=== PATIENT | male | born 1955 | race Caucasian/White ===

== ENCOUNTER → 2016-11-29 | Outpatient (CLI) | payer OTHER ==
[2016-11-29 14:11] LABS: Blood Urea Nitrogen 11 mg/dL (9-20); Non-African American GFR(MDRD) >60 (>60 ml/min/1.73 sqM)
--- NOTE | 2016-11-29 14:45 | CT ---
EXAMINATION TYPE: CT iac w con DATE OF EXAM: 11/29/2016 2:31 PM COMPARISON: NONE HISTORY: hearing loss. CT DLP: 150 mGycm Automated exposure control for dose reduction was used. CONTRAST: CT scan of the IACs is performed with IV Contrast, patient injected with 100 mL of Omnipaque 300. FINDINGS: Visualized intracranial structures are normal. There is no evidence of an enhancing CP angl e mass lesion or intracanalicular lesion. The orbits appear normal. There is no widening of the porus acoustical this on either side. There is minimal mucoperiosteal thickening involving the ethmoid sinuses. Visualized portions of the paranasal sinuses and mastoids are clear. There is underaeration of the mastoids on the right. Middle ear structures and inner ear structures are normal. There is no evidence of cholesteatoma. The scutum are normal bilaterally. IMPRESSION: 1. UNDERAERATION OF THE RIGHT MASTOID. 2. OTHERWISE NORMAL CT SCAN OF THE IACS.
== END | disposition home or self-care (01) ==
LOC: RADCTMAIN 13:39
PROVIDERS: ATTEND Otolaryngology
DX: H90.72 Mixed conductive and sensorineural hearing loss, unilateral, left ear, with unrestricted hearing on the contralateral side (principal)
CPT/HCPCS: 82565; 84520; 70481; 36415; Q9967

== ENCOUNTER → 2017-04-24 | Outpatient (CLI) | payer BC ==
[2017-04-24 07:13] LABS: Basophils % (A) 0 %; CHCM 31.4; Eosinophils # (A) 0.1 k/uL (0-0.7); Eosinophils % (A) 2 %; HCT 42.4 % (39.0-53.0); HDW 2.41; HGB 13.8 gm/dL (13.0-17.5); Hypochromasia Slight; Luc # (Auto) 0.29; Luc % (Auto) 4; Lymphocytes # (A) 3.1 k/uL (1.0-4.8); Lymphocytes % (A) 41 %; MCH 29.1 pg (25.0-35.0); MCHC 32.4 g/dL (31.0-37.0); MCV 89.8 fL (80.0-100.0); Mean Platelet Volume 6.4; Monocytes # (A) 0.4 k/uL (0-1.0); Monocytes % (A) 5 %; Neutrophils # (A) 3.5 k/uL (1.3-7.7); Neutrophils % (A) 47 %; RBC 4.73 m/uL (4.30-5.90); RDW 14.7 % (11.5-15.5); WBC 7.4 k/uL (3.8-10.6); WBC (Perox) 7.66
[2017-04-24 09:50] LABS: ALT 52 U/L (21-72); AST 41 U/L (17-59); Alkaline Phosphatase 100 U/L (38-126); Anion Gap 9 mmol/L; Blood Urea Nitrogen 15 mg/dL (9-20); Calcium 9.3 mg/dL (8.4-10.2); Carbon Dioxide 27 mmol/L (22-30); Chloride 106 mmol/L (98-107); Cholesterol 166 mg/dL (<200); Glucose 136 mg/dL (74-99); HDL Cholesterol 33 mg/dL (40-60); Non-African American GFR(MDRD) >60 (>60 ml/min/1.73 sqM); Potassium 4.3 mmol/L (3.5-5.1); Sodium 142 mmol/L (137-145); Total Bilirubin 0.6 mg/dL (0.2-1.3); Total Protein 7.2 g/dL (6.3-8.2)
== END | disposition home or self-care (01) ==
LOC: LABWHC1 06:35
PROVIDERS: ATTEND Family Medicine
DX: Z00.01 Encounter for general adult medical examination with abnormal findings (principal); E78.2 Mixed hyperlipidemia; K75.81 Nonalcoholic steatohepatitis (NASH); E11.65 Type 2 diabetes mellitus with hyperglycemia; Z12.5 Encounter for screening for malignant neoplasm of prostate
CPT/HCPCS: 80061; 80053; 85025; 36415; G0103

== ENCOUNTER → 2017-11-14 | Outpatient (CLI) | payer BC ==
[2017-11-14 10:46] LABS: ALT 32 U/L (21-72); AST 33 U/L (17-59); Albumin 3.9 g/dL (3.5-5.0); Alkaline Phosphatase 76 U/L (38-126); Anion Gap 9 mmol/L; Blood Urea Nitrogen 14 mg/dL (9-20); Calcium 9.4 mg/dL (8.4-10.2); Carbon Dioxide 28 mmol/L (22-30); Chloride 105 mmol/L (98-107); Cholesterol 161 mg/dL (<200); Glucose 135 mg/dL (74-99); HDL Cholesterol 39 mg/dL (40-60); LDL Cholesterol,Calculated 95 mg/dL (0-99); Potassium 5.1 mmol/L (3.5-5.1); Sodium 142 mmol/L (137-145); Total Bilirubin 0.6 mg/dL (0.2-1.3); Total Protein 6.6 g/dL (6.3-8.2); Triglycerides 134 mg/dL (<150)
== END | disposition home or self-care (01) ==
LOC: LABWHC1 09:06
PROVIDERS: ATTEND Family Medicine
DX: E11.65 Type 2 diabetes mellitus with hyperglycemia (principal)
CPT/HCPCS: 36415; 80053; 80061

== ENCOUNTER 2018-01-16 18:00 | Emergency (ER) | payer BC ==
--- NOTE | 2018-01-16 18:31 | ED ---
Neuro HPI - General Chief Complaint: Neuro Symptoms/Deficit Stated Complaint: Poss stroke/ [place] palsey Time Seen by Provider: 01/16/18 18:10 Source: patient, family Mode of arrival: wheelchair Limitations: no limitations - History of Present Illness Is the patient presenting with stroke symptoms?: No Initial Comments: Patient with history of hypertension, diabetes, HLD present with numbness lower R side of face along mandible. Patient states sometime between 10 AM and 12 PM today he started feeling numbness along the right mandible, progressed to right half of right lower lip. Patient states he had the same episode in October of this year, was diagnosed with Duran's palsy, resolved after 6 weeks of prednisone and acyclovir. Patient states that time he can puff out his cheeks, which she is unable to do so today. Patient states she never had problems moving his forehead were closing his eye. She denies any history of heart attacks or strokes. Patient denies any headache, neck pain, vision changes, extremity weakness or numbness, confusion, speech problems. Patient states he has never had CT of the brain performed. - Related Data Home Medications: Home Medications Medication Instructions Recorded Confirmed Atorvastatin Calcium [Lipitor] 40 mg PO HS 02/28/16 01/16/18 Colesevelam [Welchol] 1,875 mg PO AC-BID 02/28/16 01/16/18 Ezetimibe [Zetia] 10 mg PO HS 02/28/16 01/16/18 Multivitamins, Thera [Multivitamin] 1 tab PO DAILY 02/28/16 01/16/18 metFORMIN HCL 1,000 mg PO BID 02/28/16 01/16/18 Lisinopril [Prinivil] 5 mg PO HS 01/16/18 01/16/18 Pioglitazone HCl [Actos] 15 mg PO DAILY 01/16/18 01/16/18 Previous Rx's Medication Instructions Recorded Aspirin EC [Ecotrin Low Dose] 81 mg PO DAILY 10 Days #10 01/16/18 tablet. predniSONE 40 mg PO DAILY 5 Days #10 tab 01/16/18 valACYclovir HCL [Valacyclovir] 1,000 mg PO Q8HR #15 tab 01/16/18 Allergies/Adverse Reactions: Allergies Allergy/AdvReac Type Severity Reaction Status Date / Time No Known Allergies Allergy Verified 01/16/18 19:00 Review of Systems ROS Statement: Those systems with pertinent positive or pertinent negative responses have been documented in the HPI. ROS Other: All systems not noted in ROS Statement are negative. Constitutional: Denies: fever, chills Eyes: Denies: eye pain, vision change ENT: Denies: ear pain, throat pain, hearing loss, congestion Respiratory: Denies: cough, dyspnea, stridor Cardiovascular: Denies: chest pain, palpitations Endocrine: Denies: fatigue Gastrointestinal: Denies: abdominal pain Musculoskeletal: Denies: arthralgia, myalgia Skin: Denies: rash, change in color Neurological: Reports: numbness, paresthesias. Denies: headache, weakness, confusion, vertigo General Exam - General Exam Comments Initial Comments: Sitting up on side of bed. No acute distress. Conversing normally. Calm, pleasant. Well appearing. Limitations: no limitations General appearance: alert, in no apparent distress Head exam: Present: atraumatic, normocephalic Eye exam: Present: normal appearance, PERRL, EOMI, other (A pills equal and reactive bilaterally. Eye movements intact bilaterally.). Absent: scleral icterus, conjunctival injection, nystagmus, periorbital swelling, periorbital tenderness Pupils: Present: normal accommodation ENT exam: Present: normal oropharynx, mucous membranes moist Neck exam: Present: normal inspection, other (No edema or swelling appreciated.) . Absent: tenderness, meningismus Respiratory exam: Present: normal lung sounds bilaterally. Absent: respiratory distress, wheezes, rales Cardiovascular Exam: Present: regular rate, normal rhythm GI/Abdominal exam: Present: soft. Absent: distended, tenderness, guarding, rebound Extremities exam: Present: normal inspection Neurological exam: Present: alert, oriented X3, normal gait, other (Patient unable to puff out his right cheek, otherwise cranial nerves intact. Patient denies any change in sensation upon palpation of lower right face and other areas of face. Patient with intact movement of right eyelid and right forehead. Muscle strength 5 out of 5 in all x-rays. Sensation intact in all extremities. Finger to nose coordinated bilaterally. Pronator drift negative bilaterally. Speech clear. GCS 15. Alert and oriented 4.) Psychiatric exam: Present: normal affect, normal mood Skin exam: Present: warm, dry, intact, normal color. Absent: rash Stroke [facility] - Lab Data Result diagrams: 01/16/18 18:35 01/16/18 18:35 Lab Results 01/16/18 01/16/18 01/16/18 Range/Units 18:35 18:35 18:35 WBC 7.3 (3.8-10.6) k/uL RBC 4.38 (4.30-5.90) m/uL Hgb 13.1 (13.0-17.5) gm/dL Hct 39.9 (39.0-53.0) % MCV 90.9 (80.0-100.0) fL MCH 30.0 (25.0-35.0) pg MCHC 33.0 (31.0-37.0) g/dL RDW 14.4 (11.5-15.5) % Plt Count 164 (150-450) k/uL Neutrophils % 46 % Lymphocytes % 45 % Monocytes % 5 % Eosinophils % 2 % Basophils % 0 % Neutrophils # 3.3 (1.3-7.7) k/uL Lymphocytes # 3.3 (1.0-4.8) k/uL Monocytes # 0.4 (0-1.0) k/uL Eosinophils # 0.2 (0-0.7) k/uL Basophils # 0.0 (0-0.2) k/uL PT 10.1 (9.0-12.0) sec INR 1.0 (<1.2) APTT 24.8 (22.0-30.0) sec Sodium 135 L (137-145) mmol/L Potassium 4.3 (3.5-5.1) mmol/L Chloride 103 (98-107) mmol/L Carbon Dioxide 23 (22-30) mmol/L Anion Gap 9 mmol/L BUN 17 (9-20) mg/dL Creatinine 0.86 (0.66-1.25) mg/dL Est GFR (CKD-EPI)AfAm >90 (>60 ml/min/1.73 sqM) Est GFR (CKD-EPI)NonAf >90 (>60 ml/min/1.73 sqM) Glucose 139 H (74-99) mg/dL Calcium 9.2 (8.4-10.2) mg/dL - Medical Decision Making Patient onset of symptoms between 10 AM and 12 PM, greater than 6 hours ago. Patient is not TPA candidate. Patient also having minor symptoms, possible Duran 's palsy, therefore not TPA candidate. Patient unable to puff out his right cheek, likely secondary to cranial nerve VII palsy, however he has intact movement of right eyelid and right forehead. Patient complains of numbness lower right side of face, however has intact sensation on physical exam. Patient does say that some symptoms in the past that went away on their own after 6 weeks, after prednisone and acyclovir. Assess risk benefit of CAT scan, given symptom do appear to spare the forehead at this time. Patient and agree with CTA of the head/neck CTA of the head negative. Patient reevaluated, states numbness has been intermittent while in the ER, currently improved. Symptoms may secondary to [place]. Cranial nerve VII palsy. At this time patient has no other focal neuro deficits. Discussed with patient and admission observation for neuro monitoring, rule out possible TIA, possible MRI in the morning. Patient elects to be discharged home, declines observation period would like to trial treatment with Duran's palsy medications as this result symptoms in the past. Understands and delayed treatment of stroke. Results and significant morbidity and mortality. Patient with both agree to follow up with neurologist as outpatient. In meantime will start prednisone, valacyclovir, 81 mg aspirin for stroke prevention prophylaxis. Patient agrees to return to ER immediately if worsening of symptoms or any new symptoms including headache, confusion, speech problems, numbness or weakness in any other areas of the body. Pt given referral to neurologist Dr. Lazo. 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 History of Any Multi-Drug Resistant Organisms: None Reported Past Surgical History: Tonsillectomy Past Anesthesia/Blood Transfusion Reactions: No Reported Reaction Past Psychological History: No Psychological Hx Reported Smoking Status: Former smoker Past Alcohol Use History: None Reported Past Drug Use History: None Reported - Past Family History Mother Family Medical History: No Reported History Course Vital Signs 01/16/18 01/16/18 18:05 20:24 Temperature 97.8 F 97.9 F Pulse Rate 86 83 Respiratory 15 18 Rate Blood Pressure 121/80 116/73 O2 Sat by Pulse 98 96 Oximetry Disposition 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 Follow primary care physician one to 2 days as well. Return to ER immediately if new or worsening symptoms including vision changes, speech problems, confusion, new numbness or weakness. Prescriptions: Aspirin EC [Ecotrin Low Dose] 81 mg PO DAILY 10 Days #10 tablet. predniSONE 40 mg PO DAILY 5 Days #10 tab valACYclovir HCL [Valacyclovir] 1,000 mg PO Q8HR #15 tab Is patient prescribed a controlled substance at d/c from ED?: No Referrals: Lisy Rojo III, MD [Primary Care Provider] - 1-2 days Monika Lazo MD [STAFF PHYSICIAN] - 1-2 days
[2018-01-16 18:47] LABS: Basophils % (A) 0 %; Eosinophils # (A) 0.2 k/uL (0-0.7); Eosinophils % (A) 2 %; HCT 39.9 % (39.0-53.0); HGB 13.1 gm/dL (13.0-17.5); Lymphocytes # (A) 3.3 k/uL (1.0-4.8); Lymphocytes % (A) 45 %; MCV 90.9 fL (80.0-100.0); Mean Platelet Volume 6.2; Monocytes # (A) 0.4 k/uL (0-1.0); Monocytes % (A) 5 %; Neutrophils # (A) 3.3 k/uL (1.3-7.7); Neutrophils % (A) 46 %; Platelet Count 164 k/uL (150-450); RBC 4.38 m/uL (4.30-5.90); RDW 14.4 % (11.5-15.5); WBC 7.3 k/uL (3.8-10.6)
[2018-01-16 18:55] LABS: Anion Gap 9 mmol/L; Blood Urea Nitrogen 17 mg/dL (9-20); Calcium 9.2 mg/dL (8.4-10.2); Carbon Dioxide 23 mmol/L (22-30); Chloride 103 mmol/L (98-107); Glucose 139 mg/dL (74-99); Potassium 4.3 mmol/L (3.5-5.1); Sodium 135 mmol/L (137-145)
[2018-01-16 18:56] LABS: Partial Thromboplastin Time 24.8 sec (22.0-30.0); Prothrombin Time 10.1 sec (9.0-12.0)
--- NOTE | 2018-01-16 20:20 | CT ---
EXAMINATION TYPE: CT angio head neck DATE OF EXAM: 01/16/2018 HISTORY: Right sided facial numbness. COMPARISON: NONE CT DLP: 364.4 mGycm. Automated Exposure Control for Dose Reduction was Utilized. TECHNIQUE: CTA scan of the head and neck are performed with IV Contrast, patient injected with 65 mL of Isovue 370, axial images are obtained, coronal and sagittal reformatted images are reviewed. Thre e-D reconstructed images are created on an independent workstation and reviewed. FINDINGS: Carotid/Vascular Structures: There is normal three-vessel origin from aortic arch with mild to minima l peripheral calcified plaque. Subclavian artery show no significant stenosis bilaterally. The right common carotid artery shows normal origin from right brachiocephalic artery. There is no significant plaque or stenosis in the right common or internal carotid artery arteries including at level of hunt tid bulb. Mild calcified plaque is seen in the proximal to mid right internal carotid artery. There i s patent right external carotid artery without significant plaque or stenosis . There is no significant plaque or stenosis in the left common or internal carotid arteries including at level of carotid bulb. There is patent external carotid artery without significant plaque or steno sis. There is dominant left vertebral artery. Vertebral arteries are patent to basilar junction. There is no significant stenosis or aneurysmal change in the posterior circulation. Patent posterior communica ting arteries are not identified. Images of the anterior circulation show no significant focal stenosis or aneurysmal change. Patent an terior communicating artery is present. Other: No significant incidental finding identified. IMPRESSION: 1. No significant focal stenosis in common or internal carotid arteries bilaterally. 2. No aneurysmal change at the level of [place] of [place].
[2018-01-16 20:24] VITALS: RESP 18
[2018-01-16] MEDS ORDERED: ASPIRIN 81 MG PO STA (21:32)
[2018-01-16 21:49] VITALS: BP 126/73; PULSE 77; TEMP 97.2
== END 2018-01-16 21:49 | disposition home or self-care (01) ==
LOC: EC 18:00
DX: G51.0 Bell's palsy (principal); E11.9 Type 2 diabetes mellitus without complications; E78.5 Hyperlipidemia, unspecified; I10 Essential (primary) hypertension; Z87.891 Personal history of nicotine dependence; Z79.84 Long term (current) use of oral hypoglycemic drugs; Z79.899 Other long term (current) drug therapy; Z53.29 Procedure and treatment not carried out because of patient's decision for other reasons
CPT/HCPCS: 36415; 80048; 85025; 85610; 85730; 70496; 70498; 99284; Q9967

== ENCOUNTER → 2018-02-23 | Outpatient (CLI) | payer BC ==
--- NOTE | 2018-02-23 18:28 | FL ---
EXAMINATION: Upper GI with small bowel follow through DATE: 02/23/2018 CLINICAL INDICATION: 62-year-old male with epigastric pain, history of gastroesophageal reflux, diffi culty swallowing pills, concern for hiatal hernia per patient. COMPARISON: None Total Fluoroscopy Time: 2 minutes 31 seconds. Total images: 68 FINDINGS: Initial butt welder image shows moderate stool burden. Nonobstructive bowel gas pattern. No suspicious calc ifications. The esophagus has a normal course, caliber, motility and mucosa. There is a small sliding hiatal hernia and [id number] gastroesophageal reflux noted when the pa tient is brought supine. The stomach and duodenum are free of any persistent filling defect and demonstrate a normal mucosal p attern with area gastricae demonstrated. Following administration of barium, serial films were carried out to 2 hours. Barium is seen to reach the colon at 1 hour 30 minutes. Loops of jejunum and ileum are compressed and examined under fluoros copy. The small bowel loops have a normal-caliber. Mucosal pattern is within normal limits. No intrin sic or extrinsic process is suspected. IMPRESSION: 1. Small sliding hiatal hernia with mild to moderate gastroesophageal reflux when the patient is brou ght supine. Esophageal mucosa is normal. 2. No mucosal abnormality or suspicious filling defect within the stomach. 3. Normal small bowel follow-through and normal small bowel transit time (1 hour 30 minutes).
== END | disposition home or self-care (01) ==
LOC: RADFLMAIN 07:51
PROVIDERS: ATTEND Family Medicine
DX: K44.9 Diaphragmatic hernia without obstruction or gangrene (principal); K21.9 Gastro-esophageal reflux disease without esophagitis; Z88.8 Allergy status to other drugs, medicaments and biological substances
CPT/HCPCS: 74245

== ENCOUNTER → 2018-06-26 | Outpatient (CLI) | payer BC ==
[2018-06-26 09:45] LABS: Basophils % (A) 0 %; Eosinophils # (A) 0.1 k/uL (0-0.7); Eosinophils % (A) 1 %; HCT 38.7 % (39.0-53.0); HGB 12.2 gm/dL (13.0-17.5); Lymphocytes % (A) 28 %; MCH 29.5 pg (25.0-35.0); MCHC 31.6 g/dL (31.0-37.0); MCV 93.3 fL (80.0-100.0); Mean Platelet Volume 6.5; Monocytes # (A) 0.5 k/uL (0-1.0); Monocytes % (A) 7 %; Neutrophils # (A) 4.5 k/uL (1.3-7.7); Neutrophils % (A) 63 %; Platelet Count 159 k/uL (150-450); RBC 4.14 m/uL (4.30-5.90); WBC 7.1 k/uL (3.8-10.6)
[2018-06-26 17:14] LABS: Albumin 4.4 g/dL (3.80-4.90); Albumin/Globulin Ratio 2.44 (1.20-2.10); Anion Gap 7.2 mmol/L (4.00-12.00); Carbon Dioxide 25.8 mmol/L (21.6-31.8); Globulin 1.8 g/dL (2.1-3.7); LDL Cholesterol,Calculated 85.4 mg/dL (0.0-131.0); Potassium 4.4 mmol/L (3.5-5.5); Total Protein 6.2 g/dL (6.2-8.2); VLDL Calculation 19.6 mg/dL (5.00-40.00)
== END | disposition home or self-care (01) ==
LOC: LABWHC1 08:24
PROVIDERS: ATTEND Family Medicine
DX: E11.65 Type 2 diabetes mellitus with hyperglycemia (principal)
CPT/HCPCS: 80061; 80053; 85025; 83036; 36415; G0103

== ENCOUNTER → 2018-07-08 | Outpatient (CLI) | payer BC ==
--- NOTE | 2018-07-08 19:32 | CT ---
EXAMINATION TYPE: CT abdomen pelvis wo/w con DATE OF EXAM: 07/08/2018 COMPARISON: None HISTORY: Abdominal pain CT DLP: mGycm Automated exposure control for dose reduction was used. TECHNIQUE: Helical acquisition of images was performed from the lung bases through the pelvis. CONTRAST: The contrast was Isovue 100 mL. FINDINGS: Lung bases are clear. There is no pleural effusion. Heart size is normal. There is no pericardial eff usion. Liver spleen pancreas appear normal. Bile ducts are not dilated. There is a small calcified gallstone . Gallbladder has normal size. There is no adrenal mass. There are cortical cyst on the right kidney that measure up to 2.5 cm. Ther e is no hydronephrosis. Ureters are not dilated. There is no retroperitoneal adenopathy. Bladder dist ends smoothly. There is no inguinal hernia. There is no free fluid in the pelvis. I see no intestinal wall thickening. There are no dilated loops . Appendix appears normal. There is no mesenteric edema. There are a few mesenteric lymph nodes that measure up to 1.5 cm. There are some spondylotic changes in the lumbar spine. There is no compression fracture. I see no bony destructive process. IMPRESSION: THERE ARE A FEW MESENTERIC LYMPH NODES OF UNCERTAIN SIGNIFICANCE. NO INTESTINAL WALL THICKENING OR EV IDENCE OF A BOWEL OBSTRUCTION. BILATERAL RENAL CORTICAL CYSTS. NO SIGN OF ACUTE ABDOMEN AND PELVIS.
== END ==
LOC: RADCTMAIN 16:40
PROVIDERS: ATTEND Family Medicine
DX: N28.1 Cyst of kidney, acquired (principal)
CPT/HCPCS: 74178; Q9967

== ENCOUNTER → 2018-07-27 | Outpatient (CLI) | payer BC ==
[2018-07-28 05:53] LABS: T4, Free (Free Thyroxine) 1.1 ng/dL (0.80-1.80)
[2018-07-28 09:35] LABS: Lyme IgG/IgM 0.1 Index
== END | disposition home or self-care (01) ==
LOC: LABWHC1 17:15
PROVIDERS: ATTEND Otolaryngology
DX: H91.8X9 Other specified hearing loss, unspecified ear (principal); R53.83 Other fatigue
CPT/HCPCS: 36415; 82607; 84439; 84443; 86618; 86780

== ENCOUNTER → 2018-07-30 | Outpatient (CLI) | payer BC ==
--- NOTE | 2018-07-30 23:57 | MR ---
EXAMINATION TYPE: MR brain and iac wo/w con DATE OF EXAM: 07/30/2018 COMPARISON: None HISTORY: Hearing loss. Hand tremors. TECHNIQUE: Multiplanar, multisequence images of the brain and brainstem is performed without and with IV contras t, utilizing 9 mL mL intravenous . FINDINGS: There is mild diffuse cerebral cortical atrophy. There is no mass effect nor midline shift. There is no sign of intracranial hemorrhage. There is no evidence of cortical infarct. There is slig ht thinning of the corpus callosum. The brainstem appears intact. There are scattered white matter hi gh signal foci in both cerebral hemispheres that measure up to 1 cm. Total number is approximately 25 . Internal auditory canals appear normal. There is no evidence of a posterior fossa mass. Cerebellum alvarado s fairly normal signal pattern. There is no evidence of cerebellopontine angle mass. Acoustic nerve a nd vestibular nerve appear normal. There is normal signal pattern in the temporal bones. Contrast paola ges show no pathologic enhancement. There is normal contrast opacification of the venous sinuses. IMPRESSION: Mild cerebral atrophy. Multiple white matter high signal foci probably relates to chronic small vessel ischemia at the pemberton-white matter junction of both cerebral hemispheres. No posterior f lazara focal abnormality.
== END | disposition home or self-care (01) ==
LOC: RADMRIMAIN 18:46
PROVIDERS: ATTEND Otolaryngology
DX: G31.9 Degenerative disease of nervous system, unspecified (principal); R90.82 White matter disease, unspecified; H93.19 Tinnitus, unspecified ear; H91.92 Unspecified hearing loss, left ear; H93.3X2 Disorders of left acoustic nerve
CPT/HCPCS: 70553; A9585

== ENCOUNTER → 2018-12-16 | Outpatient (CLI) | payer BC ==
[2018-12-16 17:13] LABS: Blood Urea Nitrogen 13 mg/dL (9-20)
--- NOTE | 2018-12-17 11:04 | CT ---
EXAMINATION TYPE: CT abdomen pelvis w con DATE OF EXAM: 12/16/2018 COMPARISON: 07/08/2018 INDICATION: abdominal pain DLP: 1241.6 mGycm, Automated exposure control for dose reduction was used. CONTRAST: 100 mL of Isovue 300. Study performed with Oral Contrast TECHNIQUE: Axial images were obtained from above the diaphragm to the pubic rami in the axial plane a t 5 mm thick sections. Reconstructed images are reviewed on the computer in the coronal plane. FINDINGS: Limited CT sections are obtained the lung bases. The lung bases are clear. CT ABDOMEN: Liver: Normal Spleen: Normal Pancreas: There is some hypodensity within the anterior body of the pancreas could be related to some volume averaging. Underlying mass is not excluded. On delayed images this area may be subtly persist ent consider MRI with contrast for additional evaluation. Adrenal glands: The adrenal glands are normal. Gallbladder: Gallstone is present. Kidneys: No masses are evident. No hydronephrosis is present. There is a 1.8 cm cyst on the superio r medial left kidney measuring 13 Hounsfield units. Additional cysts in the anterior posterior right mid kidney measuring 2.1 and 2.0 cm in size and approximately 10 Hounsfield units each. Delayed imag es were obtained through the kidneys, which remain unremarkable. Aorta: Vascular calcification is within the aorta. Inferior vena cava: Normal. CT PELVIS: Loops of bowel within the abdomen and pelvis are normal. There are loops of bowel which are incom pletely distended or lack oral contrast limiting their evaluation. Appendix: Normal as visualized. Urinary bladder: Normal. Genitourinary structures: Prostate is prominent may has some inferior urinary bladder impression. Osseous structures: No suspicious lytic or sclerotic lesions. IMPRESSIONS: 1. Ill-defined hypoechoic area within the body of the pancreas. Differential could include underlyin g mass or volume averaging with adjacent mesenteric fat. Recommend MRI with contrast for additional e valuation. Neoplasm is not excluded at this time. 2. Bilateral renal cysts. 3. Cholelithiasis
== END | disposition home or self-care (01) ==
LOC: RADCTMAIN 15:32
PROVIDERS: ATTEND Surgery
DX: K80.20 Calculus of gallbladder without cholecystitis without obstruction (principal); N28.1 Cyst of kidney, acquired; R93.2 Abnormal findings on diagnostic imaging of liver and biliary tract; R10.32 Left lower quadrant pain
CPT/HCPCS: 82565; 84520; 74177; 36415; Q9967

== ENCOUNTER → 2018-12-26 | Outpatient (CLI) | payer BC ==
--- NOTE | 2018-12-26 10:16 | MR ---
EXAMINATION TYPE: MR abdomen wo/w con DATE OF EXAM: 12/26/2018 COMPARISON: CT scan of the abdomen and pelvis dated 12/16/2018. HISTORY: Abdomen pain, abnormal CT CONTRAST: Standard multiplanar, multisequence MRI departmental protocol utilizing 9 mL intravenous Gadavist manolo olinium contrast. FINDINGS: Liver is normal in size. There is some signal dropout on out of phase imaging suggesting mi ld fatty infiltration of the liver. There is a small filling defect within the gallbladder which may represent a small calculus. The spleen is unremarkable. Following the intravenous administration of gadolinium, there is no abnormal enhancement. There are s imple appearing cysts in both kidneys. Both adrenal glands appear normal. There is a bilobed cystic lesion present within the body of the pancreas measuring approximately 2.9 x 1.3 cm. This is likely was accounting for the CT abnormality. There is no dilatation of the pancrea tic duct. IMPRESSION: 1. LOBULATED LESION WITHIN THE BODY OF THE PANCREAS HAS A CYSTIC APPEARANCE AND ABSENCE OF ENHANCEMEN T SUGGESTING A BENIGN ETIOLOGY. 2. MILD FATTY INFILTRATION OF THE LIVER. 3. SIMPLE APPEARING CYSTIC CHANGE WITHIN THE KIDNEYS. 4. CHOLELITHIASIS.
== END | disposition home or self-care (01) ==
LOC: RADMRIMAIN 08:47
PROVIDERS: ATTEND Surgery
DX: K86.2 Cyst of pancreas (principal); K80.20 Calculus of gallbladder without cholecystitis without obstruction; K76.0 Fatty (change of) liver, not elsewhere classified; N28.1 Cyst of kidney, acquired
CPT/HCPCS: 74183; A9585

== ENCOUNTER 2019-02-23 11:06 | Day surgery (SDC) | payer BC ==
[2019-02-16 11:38] VITALS: BMI 29.0
[~2019-02-23 11:06] MED LIST: DEXAMETHASONE SOD PHOSPHATE 10 MG/ML 1 ML VIAL IV ONE; HYDROmorphone 0.5 MG/0.5 ML SYRINGE IVP PRN; MIDAZOLAM 2 MG/2 ML VIAL IV PRN; ONDANSETRON 4 MG/2 ML VIAL IVP ONE; SCOPOLAMINE 1.5MG/72HR PATCH TRANSDERM ONE; ceFAZolin IN SWFI 2 GM/20 ML SYRINGE IVP ONE
[2019-02-23 11:52] LABS: Glucose,Whole Blood 108 mg/dL (75-99)
[2019-02-23] MEDS: LACTATED RINGERS 1,000 ML IV SCH ×2 (11:52→14:10)
[2019-02-23] MEDS ORDERED: LIDOCAINE 1% 20 ML VIAL (10MG/ML) FOR IV START INTRADERMA ONE (11:53)
[2019-02-23] MEDS ORDERED: fentaNYL (PF) 50 MCG/ML 2 ML AMP IVP ONE (12:20)
[2019-02-23] MEDS ORDERED: NEOSTIGMINE 1 MG/ML 10 ML VIAL ONE (15:04)
[2019-02-23] MEDS ORDERED: fentaNYL (PF) 50 MCG/ML 2 ML AMP ONE (15:04)
[2019-02-23] MEDS ORDERED: ROCURONIUM BROMIDE 10 MG/ML 10 ML VIAL IV ONE (15:04)
[2019-02-23] MEDS ORDERED: GLYCOPYRROLATE 0.2 MG/ML 2 ML VIAL ONE (15:04)
[2019-02-23] MEDS ORDERED: MIDAZOLAM 2 MG/2 ML VIAL ONE (15:04)
[2019-02-23] MEDS ORDERED: PROPOFOL 10 MG/ML 20 ML VIAL IV ONE (15:04)
[2019-02-23] MEDS ORDERED: LIDOCAINE 1% INJ 10MG/ML (20 ML MDV) ONE (15:04)
[2019-02-23] MEDS ORDERED: SUCCINYLCHOLINE CHLORIDE 100 MG/5 ML SYR IV ONE (15:04)
[2019-02-23] MEDS ORDERED: PHENYLEPHRINE-0.9% NACL SYG 1 MG/10 ML SYRINGE ONE (15:04)
[2019-02-23] MEDS ORDERED: BUPIVACAIN-EPI 0.25%-1:200,000 30 ML VIAL SQ ONE (15:25)
--- NOTE | 2019-02-23 16:00 | P.OP ---
Date of Procedure: 02/23/19 Preoperative Diagnosis: Left inguinal hernia Postoperative Diagnosis: Left direct and indirect inguinal hernia Procedure(s) Performed: Left inguinal herniorrhaphy with mesh Anesthesia: JOSE Surgeon: Trinidad Lopes Estimated Blood Loss (ml): 5 Pathology: none sent Condition: stable Disposition: PACU Indications for Procedure: Patient presented with a symptomatic left inguinal hernia Description of Procedure: The patient's taken the operative suite where he is prepped and draped in the usual sterile manner under a general endotracheal anesthetic. The ASIS and pubic tubercle were identified. Alf between those 2 points a 3 cm incision was made. The subcutaneous tissues were divided. The external oblique is opened along the direction of its fibers. The internal oblique as bluntly opened along the direction of its fibers. The transversalis fascia is opened vertically. The preperitoneal space is bluntly developed. The cord and cord structures were dissected free. There was a indirect hernia sac which is dissected free and suture-ligated. There was also evidence of a direct inguinal hernia. Once adequate space was developed, a 8 x 12 cm mesh was placed in the area and deployed. He gave good coverage of potential hernia defect areas. It was tacked to the fascia medially using a spiral tacker. The transversalis fascia was then closed with 0 Vicryl taking bites of the mesh to secure it in place. The internal oblique was allowed to fall back together. The external oblique is closed with 0 Vicryl. The skin incision was closed with 4-0 Vicryl in a subcuticular manner. Steri-Strips and dressings were applied. He tolerated the procedure without difficulty and was taken to recovery room in satisfactory condition. According to or personnel, all counts were correct. Plan - Discharge Summary Discharge Rx Participant: No New Discharge Prescriptions: New HYDROcodone/APAP 5-325MG [Morris 5-325] 1 - 2 tab PO Q4H PRN #30 tab PRN Reason: Pain No Action metFORMIN HCL 1,000 mg PO BID Colesevelam [Welchol] 1,875 mg PO AC-BID Atorvastatin Calcium [Lipitor] 40 mg PO HS Ezetimibe [Zetia] 10 mg PO HS Lisinopril [Prinivil] 2.5 mg PO HS Pioglitazone HCl [Actos] 15 mg PO DAILY traMADol HCL [Ultram] 50 mg PO Q6HR PRN PRN Reason: Pain Omeprazole [PriLOSEC] 20 mg PO AC-BRKFST PRN PRN Reason: acid reflux Dulaglutide [Trulicity] 0.75 mg SQ LEUNG Cyanocobalamin (Vitamin B-12) [Vitamin B-12] 2,000 mcg PO HS Discharge Medication List Atorvastatin Calcium [Lipitor] 40 mg PO HS 02/28/16 [History] Colesevelam [Welchol] 1,875 mg PO AC-BID 02/28/16 [History] Ezetimibe [Zetia] 10 mg PO HS 02/28/16 [History] metFORMIN HCL 1,000 mg PO BID 02/28/16 [History] Lisinopril [Prinivil] 2.5 mg PO HS 01/16/18 [History] Pioglitazone HCl [Actos] 15 mg PO DAILY 01/16/18 [History] Cyanocobalamin (Vitamin B-12) [Vitamin B-12] 2,000 mcg PO HS 02/16/19 [History] Dulaglutide [Trulicity] 0.75 mg SQ LEUNG 02/16/19 [History] Omeprazole [PriLOSEC] 20 mg PO AC-BRKFST PRN 02/16/19 [History] traMADol HCL [Ultram] 50 mg PO Q6HR PRN 02/16/19 [History] HYDROcodone/APAP 5-325MG [Morris 5-325] 1 - 2 tab PO Q4H PRN #30 tab 02/23/19 [Rx] Follow up Appointment(s)/Referral(s): Trinidad Lopes DO [Doctor of Osteopathic Medicine] - 2 Weeks Activity/Diet/Wound Care/Special Instructions: Keep the dressing on until . Then it may be removed any may shower. No swimming or tub baths for 1 week. Ice to the incision and scrotum for 24-48 hours. Wear while supporting underwear. No lifting more than a gallon of milk. No driving while taking pain medication. You may use Tylenol or Motrin instead of the pain medication. Discharge Disposition: HOME SELF-CARE
[2019-02-23 16:07] VITALS: TEMP 98.4
[2019-02-23 16:10] LABS: Glucose,Whole Blood 142 mg/dL (75-99)
[2019-02-23] MEDS ORDERED: HYDROmorphone 1 MG/ML 1 ML SYRINGE IVP ONE (16:35)
[2019-02-23 17:00] VITALS: RESP 16
[2019-02-23 17:08] VITALS: BP 112/71; PULSE 78
== END 2019-02-23 17:24 | disposition home or self-care (01) ==
LOC: OR 11:06
PROVIDERS: ATTEND Surgery
DX: K40.90 Unilateral inguinal hernia, without obstruction or gangrene, not specified as recurrent (principal); I10 Essential (primary) hypertension; E78.5 Hyperlipidemia, unspecified; E11.9 Type 2 diabetes mellitus without complications; K21.9 Gastro-esophageal reflux disease without esophagitis; E78.00 Pure hypercholesterolemia, unspecified; K86.2 Cyst of pancreas; G51.0 Bell's palsy; Z87.891 Personal history of nicotine dependence; Z79.84 Long term (current) use of oral hypoglycemic drugs; Z79.891 Long term (current) use of opiate analgesic; Z79.899 Other long term (current) drug therapy; Z88.8 Allergy status to other drugs, medicaments and biological substances; Z97.2 Presence of dental prosthetic device (complete) (partial)
CPT/HCPCS: 49505; C1781; J2250; J1100; J2710; J2405; J2001; J3010; J1170 ×2; J2370; J0330; J2704; J0690

== ENCOUNTER → 2019-06-02 | Outpatient (CLI) | payer BC ==
[2019-06-02 16:12] LABS: Chol/HDL Ratio 4.42; LDL Cholesterol,Calculated 107.8 mg/dL (0.0-131.0); VLDL Calculation 22.2 mg/dL (5.00-40.00)
[2019-06-02 16:13] LABS: African American GFR (CKD) 91.8 (60.0-200.0); Albumin 4.6 g/dL (3.80-4.90); Albumin/Globulin Ratio 2.42 (1.60-3.17); Anion Gap 8.1 mmol/L (4.00-12.00); Calcium 9.8 mg/dL (8.7-10.3); Carbon Dioxide 25.9 mmol/L (21.6-31.8); Globulin 1.9 g/dL (1.6-3.3); Potassium 4.5 mmol/L (3.5-5.5); Total Bilirubin 0.8 mg/dL (0.3-1.2); Total Protein 6.5 g/dL (6.2-8.2)
== END | disposition home or self-care (01) ==
LOC: LABWHC1 08:26
PROVIDERS: ATTEND Family Medicine
DX: E11.9 Type 2 diabetes mellitus without complications (principal)
CPT/HCPCS: 36415; 80053; 80061

== ENCOUNTER → 2020-03-09 | Outpatient (CLI) | payer BC ==
--- NOTE | 2020-03-15 12:24 | P.ARTDOP ---
Arterial Doppler LOWER EXTREMITY ARTERIAL DOPPLER: DATE OF SERVICE: 03/09/2020: Reason for study: Calf cramping. Doppler waveforms: Multiphasic bilaterally throughout. Pulse volume recording: []. Pressure gradients: None. Ankle-brachial indices: Greater than 1 bilaterally. Toe brachial indices: 0.69 on the right, 0.69 on the left Impression: Normal study.
== END | disposition home or self-care (01) ==
LOC: RADUSWWP 10:07
PROVIDERS: ATTEND Family Medicine
DX: R20.3 Hyperesthesia (principal)
CPT/HCPCS: 93922

== ENCOUNTER 2020-11-21 02:17 | Emergency (ER) | payer BC, MEDICARE ==
[2020-11-21 02:24] VITALS: RESP 16
[2020-11-21 03:01] LABS: Basophils % (A) 0 %; Eosinophils # (A) 0.2 k/uL (0-0.7); Eosinophils % (A) 2 %; HGB 13.7 gm/dL (13.0-17.5); Lymphocytes # (A) 2.8 k/uL (1.0-4.8); Lymphocytes % (A) 34 %; MCH 31.7 pg (25.0-35.0); MCHC 33.3 g/dL (31.0-37.0); MCV 95.1 fL (80.0-100.0); Mean Platelet Volume 6.2; Monocytes # (A) 0.5 k/uL (0-1.0); Monocytes % (A) 6 %; Neutrophils # (A) 4.4 k/uL (1.3-7.7); Neutrophils % (A) 54 %; Platelet Count 183 k/uL (150-450); RBC 4.31 m/uL (4.30-5.90); RDW 12.5 % (11.5-15.5); WBC 8.1 k/uL (3.8-10.6)
[2020-11-21 03:12] LABS: ALT 16 U/L (4-49); AST 21 U/L (17-59); African American GFR (CKD) >90 (>60 ml/min/1.73 sqM); Albumin 3.9 g/dL (3.5-5.0); Alkaline Phosphatase 78 U/L (38-126); Anion Gap 6 mmol/L; Blood Urea Nitrogen 21 mg/dL (9-20); Carbon Dioxide 25 mmol/L (22-30); Chloride 103 mmol/L (98-107); Glucose 133 mg/dL (74-99); Non-African American GFR(CKD) >90 (>60 ml/min/1.73 sqM); Potassium 4.3 mmol/L (3.5-5.1); Sodium 134 mmol/L (137-145); Total Bilirubin 0.9 mg/dL (0.2-1.3); Total Protein 6.4 g/dL (6.3-8.2)
[2020-11-21 03:38] LABS: Partial Thromboplastin Time 24.5 sec (22.0-30.0); Prothrombin Time 10.4 sec (9.0-12.0)
[2020-11-21] MEDS ORDERED: SODIUM CHLORIDE 0.9% 1,000 ML IV STA ×2 (04:21)
--- NOTE | 2020-11-21 04:21 | ED ---
Abdominal Pain HPI - General Chief Complaint: Abdominal Pain Stated Complaint: Rt side Chest/Abd Pain Time Seen by Provider: 11/21/20 03:48 Source: patient Mode of arrival: wheelchair Limitations: no limitations - Related Data Home Medications Medication Instructions Recorded Confirmed Atorvastatin Calcium [Lipitor] 40 mg PO HS 02/28/16 02/23/19 Colesevelam [Welchol] 1,875 mg PO AC-BID 02/28/16 02/23/19 Ezetimibe [Zetia] 10 mg PO HS 02/28/16 02/23/19 metFORMIN HCL 1,000 mg PO BID 02/28/16 02/23/19 Pioglitazone HCl [Actos] 15 mg PO DAILY 01/16/18 02/23/19 lisinopriL [Prinivil] 2.5 mg PO HS 01/16/18 02/23/19 Cyanocobalamin (Vitamin B-12) 2,000 mcg PO HS 02/16/19 02/23/19 [Vitamin B-12] Dulaglutide [Trulicity] 0.75 mg SQ LEUNG 02/16/19 02/23/19 Omeprazole [PriLOSEC] 20 mg PO AC-BRKFST PRN 02/16/19 02/23/19 traMADol HCL [Ultram] 50 mg PO Q6HR PRN 02/16/19 02/23/19 Previous Rx's Medication Instructions Recorded HYDROcodone/APAP 5-325MG [[place] 1 - 2 tab PO Q4H PRN #30 tab 02/23/19 5-325] Allergies Allergy/AdvReac Type Severity Reaction Status Date / Time dapagliflozin [From [facility]] AdvReac yeast Verified 11/21/20 02:24 infection Review of Systems ROS Statement: Those systems with pertinent positive or pertinent negative responses have been documented in the HPI. ROS Other: All systems not noted in ROS Statement are negative. 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 History of Any Multi-Drug Resistant Organisms: None Reported Past Surgical History: Hernia Repair, Tonsillectomy Past Anesthesia/Blood Transfusion Reactions: No Reported Reaction Past Psychological History: No Psychological Hx Reported Smoking Status: Former smoker Past Alcohol Use History: None Reported Past Drug Use History: None Reported - Past Family History Mother Family Medical History: No Reported History General Exam Limitations: no limitations Course Vital Signs 11/21/20 11/21/20 02:19 04:22 Temperature 98.0 F Pulse Rate 91 81 Respiratory 16 16 Rate Blood Pressure 120/69 109/72 O2 Sat by Pulse 97 96 Oximetry Medical Decision Making - Lab Data Result diagrams: 11/21/20 02:37 11/21/20 02:37 Lab Results 11/21/20 11/21/20 11/21/20 Range/Units 02:37 02:37 02:37 WBC 8.1 (3.8-10.6) k/uL RBC 4.31 (4.30-5.90) m/uL Hgb 13.7 (13.0-17.5) gm/dL Hct 41.0 (39.0-53.0) % MCV 95.1 (80.0-100.0) fL MCH 31.7 (25.0-35.0) pg MCHC 33.3 (31.0-37.0) g/dL RDW 12.5 (11.5-15.5) % Plt Count 183 (150-450) k/uL MPV 6.2 Neutrophils % 54 % Lymphocytes % 34 % Monocytes % 6 % Eosinophils % 2 % Basophils % 0 % Neutrophils # 4.4 (1.3-7.7) k/uL Lymphocytes # 2.8 (1.0-4.8) k/uL Monocytes # 0.5 (0-1.0) k/uL Eosinophils # 0.2 (0-0.7) k/uL Basophils # 0.0 (0-0.2) k/uL PT 10.4 (9.0-12.0) sec INR 1.0 (<1.2) APTT 24.5 (22.0-30.0) sec Sodium 134 L (137-145) mmol/L Potassium 4.3 (3.5-5.1) mmol/L Chloride 103 (98-107) mmol/L Carbon Dioxide 25 (22-30) mmol/L Anion Gap 6 mmol/L BUN 21 H (9-20) mg/dL Creatinine 0.84 (0.66-1.25) mg/dL Est GFR (CKD-EPI)AfAm >90 (>60 ml/min/1.73 sqM) Est GFR (CKD-EPI)NonAf >90 (>60 ml/min/1.73 sqM) Glucose 133 H (74-99) mg/dL Plasma Lactic Acid Parth (0.7-2.0) mmol/L Calcium 9.0 (8.4-10.2) mg/dL Total Bilirubin 0.9 (0.2-1.3) mg/dL AST 21 (17-59) U/L ALT 16 (4-49) U/L Alkaline Phosphatase 78 (38-126) U/L Troponin I (0.000-0.034) ng/mL Total Protein 6.4 (6.3-8.2) g/dL Albumin 3.9 (3.5-5.0) g/dL 11/21/20 11/21/20 Range/Units 02:37 02:37 WBC (3.8-10.6) k/uL RBC (4.30-5.90) m/uL Hgb (13.0-17.5) gm/dL Hct (39.0-53.0) % MCV (80.0-100.0) fL MCH (25.0-35.0) pg MCHC (31.0-37.0) g/dL RDW (11.5-15.5) % Plt Count (150-450) k/uL MPV Neutrophils % % Lymphocytes % % Monocytes % % Eosinophils % % Basophils % % Neutrophils # (1.3-7.7) k/uL Lymphocytes # (1.0-4.8) k/uL Monocytes # (0-1.0) k/uL Eosinophils # (0-0.7) k/uL Basophils # (0-0.2) k/uL PT (9.0-12.0) sec INR (<1.2) APTT (22.0-30.0) sec Sodium (137-145) mmol/L Potassium (3.5-5.1) mmol/L Chloride (98-107) mmol/L Carbon Dioxide (22-30) mmol/L Anion Gap mmol/L BUN (9-20) mg/dL Creatinine (0.66-1.25) mg/dL Est GFR (CKD-EPI)AfAm (>60 ml/min/1.73 sqM) Est GFR (CKD-EPI)NonAf (>60 ml/min/1.73 sqM) Glucose (74-99) mg/dL Plasma Lactic Acid Parth 1.9 (0.7-2.0) mmol/L Calcium (8.4-10.2) mg/dL Total Bilirubin (0.2-1.3) mg/dL AST (17-59) U/L ALT (4-49) U/L Alkaline Phosphatase (38-126) U/L Troponin I <0.012 (0.000-0.034) ng/mL Total Protein (6.3-8.2) g/dL Albumin (3.5-5.0) g/dL - EKG Data -: EKG Interpreted by Me (EKG is sinus rhythm 88. PA 150 QRS 94 QTC 452) Disposition Clinical Impression: Abdominal pain, Chest pain Disposition: HOME SELF-CARE Condition: Good Instructions (If sedation given, give patient instructions): Abdominal Pain (ED) Is patient prescribed a controlled substance at d/c from ED?: No Referrals: Lisy Rojo III, MD [Primary Care Provider] - 1-2 days
--- NOTE | 2020-11-21 05:34 | CT ---
EXAM: CT Angiography Chest With Intravenous Contrast CLINICAL HISTORY: ITS.REASON CT Reason: pain TECHNIQUE: Axial computed tomographic angiography images of the chest with intravenous contrast. CTDI is 15.47 mGy and DLP is 480.7 mGy-cm. This CT exam was performed using one or more of the following dose reduction techniques: automated exposure control, adjustment of the mA and/or kV according to patient size, and/or use of iterative reconstruction technique. MIP reconstructed images were created and reviewed. COMPARISON: No relevant prior studies available. FINDINGS: LUNGS: There is no focal infiltrate. There is no pleural effusion or pneumothorax. The tracheobronchial tree is patent. HEART: Within normal limits. VASCULATURE: No acute pulmonary embolism. Mild atherosclerotic changes of the aorta, with coronary involvement. THYROID: Within normal limits. MEDIASTINUM + LYMPHADENOPATHY: There are no pathologically enlarged mediastinal, hilar, or axillary lymph nodes. SUPERIOR ABDOMEN: Cholelithiasis. Left renal cyst. MUSCULOSKELETAL: Within normal limits. IMPRESSION: No acute pulmonary embolism.
--- NOTE | 2020-11-21 05:40 | CT ---
EXAM: CT Abdomen and Pelvis With Intravenous Contrast CLINICAL HISTORY: ITS.REASON CT Reason: pain TECHNIQUE: Axial computed tomography images of the abdomen and pelvis with intravenous contrast. CTDI is 23.65 mGy and DLP is 494 mGy-cm. This CT exam was performed using one or more of the following dose reduction techniques: automated exposure control, adjustment of the mA and/or kV according to patient size, and/or use of iterative reconstruction technique. COMPARISON: No relevant prior studies available. FINDINGS: Lung bases: Unremarkable. No mass. No consolidation. Heart: The heart is enlarged. ABDOMEN: Liver: Area of low attenuation within the medial aspect of the right hepatic lobe may represent focal fatty infiltration Gallbladder and bile ducts: Mild cholelithiasis No ductal dilation. Pancreas: Unremarkable. No mass. No ductal dilation. Spleen: Unremarkable. No splenomegaly. Adrenals: Unremarkable. No mass. Kidneys and ureters: The kidneys symmetrically enhance. No hydronephrosis. Bilateral renal cyst. 1-2 mm nonobstructing right midpole renal calculus. Stomach and bowel: Diverticulosis, without acute diverticulitis. No small bowel obstruction. PELVIS: Appendix: Normal appendix. Bladder: Decompressed urinary bladder. Reproductive: Mildly prominent prostate gland measuring 5.4 cm. ABDOMEN and PELVIS: Intraperitoneal space: See below. Bones/joints: Degenerative changes of the spine. No acute fracture. No dislocation. Soft tissues: Small fat-containing bilateral inguinal hernias, left greater than right. Vasculature: Unremarkable. No abdominal aortic aneurysm. Lymph nodes: Area of mesenteric induration within the mid abdomen, measuring 11.8 x 4.5 x 8.3 cm. Associated, mildly prominent mesenteric lymph nodes. 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 IMPRESSION: Area of mesenteric induration within the mid abdomen, measuring 11.8 x 4.5 x 8.3 cm. Associated, mildly prominent mesenteric lymph nodes. 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 Hepatic steatosis. Cholelithiasis. Diverticulosis, without acute diverticulitis. No small bowel obstruction. Normal appendix. Mildly enlarged prostate gland. Bilateral fat-containing inguinal hernias.
[2020-11-21 06:39] VITALS: BP 112/63; PULSE 85; TEMP 97.8
== END 2020-11-21 06:30 | disposition home or self-care (01) ==
LOC: EC 02:17
DX: R10.9 Unspecified abdominal pain (principal); R07.9 Chest pain, unspecified; E11.9 Type 2 diabetes mellitus without complications; E78.5 Hyperlipidemia, unspecified; G51.0 Bell's palsy; Z79.84 Long term (current) use of oral hypoglycemic drugs; Z79.899 Other long term (current) drug therapy; Z87.891 Personal history of nicotine dependence; Z88.8 Allergy status to other drugs, medicaments and biological substances
CPT/HCPCS: 36415; 93005; 80053; 83605; 84484; 85025; 85610; 85730; 71275; 74177; 99284; Q9967

== ENCOUNTER → 2021-01-03 | Outpatient (CLI) | payer BC, MEDICARE ==
--- NOTE | 2021-01-04 16:23 | US ---
EXAMINATION TYPE: US abdomen complete DATE OF EXAM: 01/03/2021 COMPARISON: NONE CLINICAL HISTORY: K80.20 Calculus of GB w/o obs, I88.0 Lymphadenitis. Assess known gb stones, no symp toms EXAM MEASUREMENTS: Liver Length: 15.6 cm Gallbladder Wall: 0.2 cm CBD: 0.5 cm Spleen: 11.5 cm Right Kidney: 9.9 x 4.9 x 6.2 cm Left Kidney: 11.7 x 4.5 x 4.3 cm Pancreas: limited views appear wnl Liver: limited views of left lobe due to bowel gas, subcostal and intercostal imaging due to high pl acement within ribcage and overlying bowel gas, mild diffuse fatty infiltration Gallbladder: 1.2cm stone seen toward neck and did not move when rolling patient, tiny echogenic foci seen at fundal anterior wall, no wall thickening or pericholecystic fluid seen. Evidence for sonographic Frias's sign: no CBD: small portion viewed appears wnl Spleen: wnl Right Kidney: 1.6cm inferior pole cyst seen, multiple cysts were noted on recent CT exam Left Kidney: 2.6cm midpole cyst seen Upper IVC: wnl Abd Aorta: limited views due to bowel gas, no obvious abnormality noted IMPRESSION: 1. Mild diffuse fatty infiltration of the liver. 2. 1.2 cm gallstone at the neck is nonmobile. Tiny echogenic foci at the anterior gallbladder wall. C onsider adenomyomatosis. 3. Limited visualization of the liver, pancreas, common duct, and abdominal aorta. 4. Bilateral renal cysts, respectively.
== END | disposition home or self-care (01) ==
LOC: RADUSWWP 08:53
PROVIDERS: ATTEND Family Medicine
DX: K76.0 Fatty (change of) liver, not elsewhere classified (principal); N28.1 Cyst of kidney, acquired; K80.20 Calculus of gallbladder without cholecystitis without obstruction
CPT/HCPCS: 76700

== ENCOUNTER 2021-03-09 06:13 | Day surgery (SDC) | payer BC ==
[2021-03-07 11:00] VITALS: BMI 27.6
[~2021-03-09 06:13] MED LIST changes: -DEXAMETHASONE SOD PHOSPHATE 10 MG/ML 1 ML VIAL IV ONE; -HYDROmorphone 0.5 MG/0.5 ML SYRINGE IVP PRN; +LACTATED RINGERS 1,000 ML IV SCH; -MIDAZOLAM 2 MG/2 ML VIAL IV PRN; -ONDANSETRON 4 MG/2 ML VIAL IVP ONE; -SCOPOLAMINE 1.5MG/72HR PATCH TRANSDERM ONE; -ceFAZolin IN SWFI 2 GM/20 ML SYRINGE IVP ONE
[2021-03-09 06:58] VITALS: RESP 16; TEMP 97.9
[2021-03-09 07:00] LABS: Glucose,Whole Blood 97 mg/dL (75-99)
[2021-03-09] MEDS ORDERED: MIDAZOLAM 2 MG/2 ML VIAL ONE (07:04)
[2021-03-09] MEDS ORDERED: fentaNYL (PF) 50 MCG/ML 2 ML AMP ONE (07:04)
[2021-03-09] MEDS ORDERED: PROPOFOL 10 MG/ML 20 ML VIAL IV ONE (07:04)
--- NOTE | 2021-03-09 07:22 | P.PCN ---
Date of Procedure: 03/09/21 Procedure(s) Performed: BRIEF HISTORY: Patient is a 65-year-old pleasant white male scheduled for an elective colonoscopy as a part of evaluation of prior history of colon polyps. PROCEDURE PERFORMED: Colonoscopy with biopsy. PREOPERATIVE DIAGNOSIS: History of colon polyps. IV sedation per Anesthesia. PROCEDURE: After informed consent was obtained, the patient, was brought into the endoscopy unit. IV sedation was administered by Anesthesia under continuous monitoring. Digital rectal examination was normal. Initially the Olympus CF-160 flexible video colonoscope was then inserted in the rectum, gradually advanced into the cecum without any difficulty. Careful examination was performed as the scope was gradually being withdrawn. Ileocecal valve and the appendiceal orifice were visualized and appeared normal. Prep was excellent. Mucosa of the cecum, ascending colon, transverse colon there was a 3-4 mm polyp that was removed by cold biopsy. Rest of the transverse colon, descending colon, sigmoid colon, and rectum appeared normal. Retroflexion was performed in the rectum and no lesions were seen. The patient tolerated the procedure well. IMPRESSION: 3-4 mm transverse colon polyp status post biopsy Rest of the colon appeared normal RECOMMENDATIONS: Findings of this examination were discussed with the patient as well as his family. He was advised to follow with the biopsy result. If the biopsy shows an adenoma he can have a repeat colonoscopy in 5 years.
[2021-03-09 07:39] VITALS: BP 108/69; PULSE 82
== END 2021-03-09 08:10 | disposition home or self-care (01) ==
LOC: ORWHC2ENDO 06:13
PROVIDERS: ATTEND Internal Medicine Gastroenterology
DX: Z86.010 Personal history of colon polyps (principal); D12.3 Benign neoplasm of transverse colon; I10 Essential (primary) hypertension; E11.9 Type 2 diabetes mellitus without complications; E78.5 Hyperlipidemia, unspecified; K21.9 Gastro-esophageal reflux disease without esophagitis; Z79.84 Long term (current) use of oral hypoglycemic drugs; Z87.19 Personal history of other diseases of the digestive system; Z98.890 Other specified postprocedural states
CPT/HCPCS: 45380; 88305; J2250; J3010; J2704

== ENCOUNTER → 2021-05-17 | Outpatient (CLI) | payer BC ==
--- NOTE | 2021-05-17 14:54 | FL ---
EXAMINATION TYPE: FL barium swallow DATE OF EXAM: 05/17/2021 CLINICAL INDICATION: 65-year-old male R13.13, R13.19. Intermittent sensation of food and medications sticking in the lower throat and upper chest. COMPARISON: None Total Fluoroscopy Time: 2 minutes 20 seconds 57 images obtained. FINDINGS: The swallowing mechanism is normal. There is moderate hypertrophy of the cricopharyngeus. A tiny Zenk er's diverticulum is also noted that only intermittently fills and spontaneously empties. Otherwise, hypopharyngeal anatomy is preserved. The cervical and thoracic portions have a normal course and caliber. There is mild esophageal dysmoti lity with blunted secondary stripping waves and some prolonged pooling of contrast in the esophagus w hen the patient is prone or supine. Hiatal hernia not clearly seen on the present exam. No gastroesophageal reflux could be elicited. IMPRESSION: 1. Moderate cricopharyngeal hypertrophy/spasm. This may be contributing to the patient's symptoms. Co nsider direct visualization. 2. Incidental tiny Zenker's diverticulum which spontaneously empties. 3. Mild esophageal dysmotility. Otherwise, no specific abnormality seen.
== END | disposition home or self-care (01) ==
LOC: RADUSWWP 08:55
PROVIDERS: ATTEND Family Medicine
DX: K22.4 Dyskinesia of esophagus (principal); K22.5 Diverticulum of esophagus, acquired
CPT/HCPCS: 74220

== ENCOUNTER → 2022-08-06 | Outpatient (CLI) | payer MEDICARE, BC | END | disposition home or self-care (01) | LOC: LABWHC1 10:23 | PROVIDERS: ATTEND Family Medicine | DX: E11.9 Type 2 diabetes mellitus without complications (principal) | CPT/HCPCS: 36415; 83036 ==

== ENCOUNTER → 2022-11-04 | Outpatient (CLI) | payer MEDICARE, BC ==
[2022-11-04 23:08] LABS: Basophils # (A) 0.02 X 10*3/uL (0.00-0.10); Basophils % (A) 0.3 %; Eosinophils # (A) 0.13 X 10*3/uL (0.04-0.35); Eosinophils % (A) 1.8 %; HCT 41.1 % (39.6-50.0); HGB 12.7 g/dL (13.0-17.0); Immature Grans, Automated 0.1 %; Lymphocytes # (A) 2.77 X 10*3/uL (0.90-5.00); Lymphocytes % (A) 39.2 %; MCH 31.1 pg (27.0-32.0); MCHC 30.9 g/dL (32.0-37.0); MCV 100.5 fL (80.0-97.0); Mean Platelet Volume 9.2 fL (9.5-12.2); Monocytes # (A) 0.56 X 10*3/uL (0.20-1.00); Monocytes % (A) 7.9 %; NRBC Per 100 WBC 0 /100 WBCS (0.0-0.0); Neutrophils # (A) 3.58 X 10*3/uL (1.80-7.70); Neutrophils % (A) 50.7 %; Platelet Count 135 X 10*3/uL (140-440); RBC 4.09 X 10*6/uL (4.40-5.60); RDW 13.2 % (11.5-14.5); WBC 7.07 X 10*3/uL (4.50-10.00)
[2022-11-04 23:46] LABS: ALT 31 U/L (10-49); AST 31 U/L (14-35); African American GFR (CKD) 85.1 (60.0-200.0); Albumin 4.4 g/dL (3.8-4.9); Albumin/Globulin Ratio 1.84 (1.60-3.17); Alkaline Phosphatase 88 U/L (41-126); BUN/Creat Ratio 15.96 Ratio (12.00-20.00); Blood Urea Nitrogen 16.6 mg/dL (9.0-27.0); Calcium 9.7 mg/dL (8.7-10.3); Carbon Dioxide 28.1 mmol/L (20.0-27.5); Chloride 103 mmol/L (96-109); Chol/HDL Ratio 4.68 Ratio; Globulin 2.4 g/dL (1.6-3.3); Glucose 129 mg/dL (70-110); LDL Cholesterol,Calculated 102.2 mg/dL (0.0-131.0); Non-African American GFR(CKD) 73.4 (60.0-200.0); Potassium 4.9 mmol/L (3.5-5.5); Sodium 140 mmol/L (135-145); Total Protein 6.9 g/dL (6.2-8.2)
== END | disposition home or self-care (01) ==
LOC: LABWHC1 10:34
PROVIDERS: ATTEND Family Medicine
DX: Z00.01 Encounter for general adult medical examination with abnormal findings (principal); E11.9 Type 2 diabetes mellitus without complications
CPT/HCPCS: 36415; 80053; 80061; 82306; 83036; 84153; 85025

== ENCOUNTER 2023-01-04 19:59 | Emergency (ER) | payer MEDICARE, BC ==
[2023-01-04 20:20] VITALS: TEMP 99
[2023-01-04] MEDS ORDERED: SODIUM CHLORIDE 0.9% 1,000 ML IV STA (21:21)
[2023-01-04] MEDS ORDERED: KETOROLAC 15 MG/ML 1 ML VIAL IVP STA (21:21)
--- NOTE | 2023-01-04 21:23 | ED ---
Back Pain HPI - General Chief Complaint: Back Pain/Injury Stated Complaint: back pain radiating to front Time Seen by Provider: 01/04/23 20:27 Source: patient, RN notes reviewed, old records reviewed Limitations: physical limitation - History of Present Illness Initial Comments: This is a 67-year-old male to the emergency department for evaluation patient presents today for evaluation regards to back pain severe right-sided flank pain back pain left-sided playing pain back pain radiating to back lower back. MD Complaint: back pain, other (Flank pain left) -: hour(s) Similar Symptoms Previously: No Place: home Severity: severe Severity scale (1-10): 8 Quality: sharp Consistency: constant Improves With: none Worsens With: none Associated Symptoms: denies other symptoms Treatments Prior to Arrival: other (0) - Related Data Home Medications Medication Instructions Recorded Confirmed Atorvastatin Calcium [Lipitor] 40 mg PO HS 02/28/16 03/09/21 Colesevelam [Welchol] 1,875 mg PO AC-BID 02/28/16 03/09/21 Ezetimibe [Zetia] 10 mg PO HS 02/28/16 03/09/21 metFORMIN HCL [Glucophage] 1,000 mg PO BID 02/28/16 03/09/21 Pioglitazone HCl [Actos] 15 mg PO DAILY 01/16/18 03/09/21 lisinopriL [Prinivil] 2.5 mg PO HS 01/16/18 03/09/21 Cyanocobalamin (Vitamin B-12) 2,000 mcg PO HS 02/16/19 03/09/21 [Vitamin B-12] Dulaglutide [Trulicity] 0.75 mg SQ LEUNG 02/16/19 03/09/21 Ascorbic Acid [Vitamin C] 500 mg PO HS 03/07/21 03/09/21 Ferrous Sulfate [Iron] 325 mg PO HS 03/07/21 03/07/21 Ibuprofen [Motrin Ib] 200 - 800 mg PO Q8H PRN 03/07/21 03/09/21 Allergies Allergy/AdvReac Type Severity Reaction Status Date / Time dapagliflozin [From [facility]] AdvReac yeast Verified 01/04/23 20:20 infection Review of Systems ROS Statement: Those systems with pertinent positive or pertinent negative responses have been documented in the HPI. ROS Other: All systems not noted in ROS Statement are negative. 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 History of Any Multi-Drug Resistant Organisms: None Reported Past Surgical History: Hernia Repair, Tonsillectomy Past Anesthesia/Blood Transfusion Reactions: No Reported Reaction Past Psychological History: No Psychological Hx Reported Smoking Status: Former smoker Past Alcohol Use History: None Reported Past Drug Use History: None Reported - Past Family History Mother Family Medical History: No Reported History Sister(s) Family Medical History: Cancer General Exam Limitations: physical limitation General appearance: alert, in no apparent distress Head exam: Present: atraumatic, normocephalic, normal inspection Eye exam: Present: normal appearance, PERRL, EOMI. Absent: scleral icterus, conjunctival injection, periorbital swelling ENT exam: Present: normal exam, mucous membranes moist Neck exam: Present: normal inspection. Absent: tenderness, meningismus, lymphadenopathy Respiratory exam: Present: normal lung sounds bilaterally. Absent: respiratory distress, wheezes, rales, rhonchi, stridor Cardiovascular Exam: Present: regular rate, normal rhythm, normal heart sounds. Absent: systolic murmur, diastolic murmur, rubs, gallop, clicks GI/Abdominal exam: Present: soft, normal bowel sounds. Absent: distended, tenderness, guarding, rebound, rigid Extremities exam: Present: normal inspection, full ROM, normal capillary refill. Absent: tenderness, pedal edema, joint swelling, calf tenderness Back exam: Present: normal inspection Neurological exam: Present: alert, oriented X3, CN II-XII intact Psychiatric exam: Present: normal affect, normal mood Skin exam: Present: warm, dry, intact, normal color. Absent: rash Course Vital Signs 01/04/23 01/04/23 01/04/23 20:17 20:40 21:40 Temperature 99.0 F Pulse Rate 107 H 94 Respiratory 20 16 Rate Blood Pressure 126/73 131/81 135/78 O2 Sat by Pulse 96 96 Oximetry 01/04/23 01/05/23 22:39 00:02 Temperature Pulse Rate 92 90 Respiratory 18 18 Rate Blood Pressure 121/71 122/70 O2 Sat by Pulse 93 L 95 Oximetry - Reevaluation(s) Reevaluation #1: 01/04/23 22:31 Medical records reviewed Reevaluation #2: 01/04/23 22:31 Patient's pain is improved Reevaluation #3: 01/04/23 22:31 Patient informed results questions are answered Reevaluation #4: 01/04/23 22:31 Was pt. sent in by a medical professional or institution? @ -no Did you speak to anyone other than the patient for history? @ -no Did you review nursing and triage notes? @ -agree Were old charts reviewed? @ -no Differential Diagnosis? @ -prior EKG interpreted by me (3pts min.)? @ -yes X-rays interpreted by me (1pt min.)? @ -yes CT interpreted by me (1pt min.)? @ -no U/S interpreted by me (1pt. min.)? @ -no What testing was considered but not performed? (CT, X-rays, U/S, labs)? Why? @ -no What meds were considered but not given? Why? @ -no Did you discuss the management of the patient with other professionals? @ -no Did you reconcile home meds? @ -no Was smoking cessation discussed for >3mins.? @ -no Was critical care preformed (if so, how long)? @ -no Were there social determinants of health that impacted care today? How? (Homelessness, low income, unemployed, alcoholism, drug addiction, transportation, low edu. Level, literacy, decrease access to med. care, long-term, rehab)? @ -no Was there de-escalation of care discussed even if they declined? (Discuss DNR or withdrawal of care, Hospice)? @ -no What co-morbidities impacted this encounter? (DM, HTN, Smoking, COPD, CAD, Cancer, CVA, Hep., AIDS, mental health diagnosis, sleep apnea, morbid obesity)? @ -none Was patient admitted / discharged? @ -67 male to the emergency department for evaluation, patient back pain, could be early pancreatitis. Patient has no travel history or sick contacts. Patient's pain is well-controlled here in the ER with no trauma. Patient can be discharged home Discharged Undiagnosed new problem with uncertain prognosis? @ -no Drug Therapy requiring intensive monitoring for toxicity (Heparin, Nitro, Insulin, Cardizem)? @ -no Were any procedures done? @ -no Diagnosis/symptom? @ -Nonspecific back pain Acute, or Chronic, or Acute on Chronic? @ -no Uncomplicated (without systemic symptoms) or Complicated (systemic symptoms)? @ -uncomplicated Side effects of treatment? @ -no Exacerbation, Progression, or Severe Exacerbation] @ -no Poses a threat to life or bodily function? @ -no Reevaluation #5: 01/04/23 22:31 Differential Back Pain: Strain, zoster, cauda equina syndrome, epidural abscess, vertebral osteomyelitis, discitis, fracture, subluxation, disc herniation, DJD, spinal stenosis, dissection, AAA, pancreatitis, peptic ulcer disease, pyelonephritis, kidney stone, this is not meant to be an all-inclusive list. Medical Decision Making - Medical Decision Making 67 male to the emergency department for evaluation of back pain. Severe current back pain that is pain patient severe is currently resolved. Patient could have early developing pancreatitis encouraged to watch for nausea vomiting. Patient feels well and can be discharged home - Lab Data Result diagrams: 01/04/23 21:31 01/04/23 21:31 Lab Results 01/04/23 01/04/23 Range/Units 21:31 21:31 WBC 7.7 (3.8-10.6) k/uL RBC 3.90 L (4.30-5.90) m/uL Hgb 12.6 L (13.0-17.5) gm/dL Hct 37.2 L (39.0-53.0) % MCV 95.4 (80.0-100.0) fL MCH 32.3 (25.0-35.0) pg MCHC 33.8 (31.0-37.0) g/dL RDW 12.7 (11.5-15.5) % Plt Count 135 L (150-450) k/uL MPV 6.6 Neutrophils % 63 % Lymphocytes % 26 % Monocytes % 7 % Eosinophils % 1 % Basophils % 0 % Neutrophils # 4.8 (1.3-7.7) k/uL Lymphocytes # 2.0 (1.0-4.8) k/uL Monocytes # 0.6 (0-1.0) k/uL Eosinophils # 0.1 (0-0.7) k/uL Basophils # 0.0 (0-0.2) k/uL Sodium 136 L (137-145) mmol/L Potassium 4.3 (3.5-5.1) mmol/L Chloride 106 (98-107) mmol/L Carbon Dioxide 20 L (22-30) mmol/L Anion Gap 10 mmol/L BUN 17 (9-20) mg/dL Creatinine 0.90 (0.66-1.25) mg/dL Est GFR (CKD-EPI)AfAm >90 (>60 ml/min/1.73 sqM) Est GFR (CKD-EPI)NonAf 87 (>60 ml/min/1.73 sqM) Glucose 184 H (74-99) mg/dL Calcium 8.9 (8.4-10.2) mg/dL Total Bilirubin 0.7 (0.2-1.3) mg/dL AST 21 (17-59) U/L ALT 21 (4-49) U/L Alkaline Phosphatase 91 (38-126) U/L Total Protein 6.3 (6.3-8.2) g/dL Albumin 3.6 (3.5-5.0) g/dL Amylase 66 (30-110) U/L Lipase 171 (23-300) U/L - Radiology Data Radiology results: report reviewed (CT abdomen and pelvis possible early pancreatitis, no other acute findings.), image reviewed Disposition Clinical Impression: Renal colic, Strain of lumbar region, Mid back pain Disposition: HOME SELF-CARE Instructions (If sedation given, give patient instructions): Acute Low Back Pain (ED) Is patient prescribed a controlled substance at d/c from ED?: No Referrals: Lisy Rojo III, MD [Primary Care Provider] - 1-2 days Time of Disposition: 23:10
[2023-01-04 22:13] LABS: Basophils % (A) 0 %; Eosinophils # (A) 0.1 k/uL (0-0.7); Eosinophils % (A) 1 %; HCT 37.2 % (39.0-53.0); HGB 12.6 gm/dL (13.0-17.5); Lymphocytes % (A) 26 %; MCH 32.3 pg (25.0-35.0); MCHC 33.8 g/dL (31.0-37.0); MCV 95.4 fL (80.0-100.0); Mean Platelet Volume 6.6; Monocytes # (A) 0.6 k/uL (0-1.0); Monocytes % (A) 7 %; Neutrophils # (A) 4.8 k/uL (1.3-7.7); Neutrophils % (A) 63 %; Platelet Count 135 k/uL (150-450); RDW 12.7 % (11.5-15.5); WBC 7.7 k/uL (3.8-10.6)
[2023-01-04 22:32] LABS: ALT 21 U/L (4-49); AST 21 U/L (17-59); African American GFR (CKD) >90 (>60 ml/min/1.73 sqM); Albumin 3.6 g/dL (3.5-5.0); Alkaline Phosphatase 91 U/L (38-126); Amylase 66 U/L (30-110); Anion Gap 10 mmol/L; Blood Urea Nitrogen 17 mg/dL (9-20); Calcium 8.9 mg/dL (8.4-10.2); Carbon Dioxide 20 mmol/L (22-30); Chloride 106 mmol/L (98-107); Glucose 184 mg/dL (74-99); Lipase 171 U/L (23-300); Non-African American GFR(CKD) 87 (>60 ml/min/1.73 sqM); Potassium 4.3 mmol/L (3.5-5.1); Sodium 136 mmol/L (137-145); Total Bilirubin 0.7 mg/dL (0.2-1.3); Total Protein 6.3 g/dL (6.3-8.2)
[2023-01-04 22:40] VITALS: RESP 18
[2023-01-04] MEDS ORDERED: MORPHINE SULFATE 4 MG/ML SYRINGE IVP STA (23:37)
[2023-01-04] MEDS ORDERED: ACET/COD 300 MG/30 MG STARTER PACK 6 TAB BTL PO STA (23:37)
--- NOTE | 2023-01-04 23:58 | CT ---
EXAM: CT Abdomen and Pelvis Without Intravenous Contrast CLINICAL HISTORY: ITS.REASON CT Reason: abdominal pain TECHNIQUE: Axial computed tomography images of the abdomen and pelvis without intravenous contrast. CTDI is 14.1 mGy and DLP is 977.4 mGy-cm. This CT exam was performed using one or more of the following dose reduction techniques: automated exposure control, adjustment of the mA and/or kV according to patient size, and/or use of iterative reconstruction technique. COMPARISON: 11/21/2020. FINDINGS: Lung bases: Minimal scarring and subsegmental atelectasis noted at the lung bases. Heart: Heart is normal in size. ABDOMEN: Liver: Fatty liver. Gallbladder and bile ducts: There is cholelithiasis. No ductal dilation. Pancreas: Inflammatory changes are noted within the mesentery surrounding the tail of the pancreas. Early acute pancreatitis should be considered. No ductal dilation. Spleen: Spleen is normal in contour. Adrenals: The adrenal glands. Kidneys and ureters: Nonspecific stranding about the perinephric spaces without hydronephrosis. Simple renal cysts are noted. Stomach and bowel: Moderate quantity of ingested material in the stomach. Moderate quantity of stool throughout the colon. Diverticulosis without diverticulitis. No obstruction. PELVIS: Appendix: No findings to suggest acute appendicitis. Bladder: Bladder is underdistended. No stones. Reproductive: Unremarkable as visualized. ABDOMEN and PELVIS: Intraperitoneal space: Unremarkable. No free air. No significant fluid collection. Bones/joints: No acute fracture. No dislocation. No spondylolysis. Soft tissues: 3 cm left inguinal hernia containing only mesenteric fat. 2 cm right inguinal hernia containing only mesenteric fat. Vasculature: Atherosclerotic disease of the abdominal aorta extending to the common iliac arteries. No abdominal aortic aneurysm. Lymph nodes: Subcentimeter retroperitoneal lymph nodes are noted of uncertain significance. Shotty central mesenteric lymph nodes are noted with haziness within the central mesentery seen on series 202 image 33. Other findings: Minimal ASCVD. IMPRESSION: 1. Central mesenteric adenitis seen on series 202 image 33 of uncertain significance. 2. Inflammatory changes noted within the mesentery surrounding the tail the pancreas seen on series 201 image 47. Consider early acute pancreatitis. Correlation with laboratory values and clinical correlation are advised. 3. Cholelithiasis. 4. Nonspecific stranding about the perinephric spaces without hydronephrosis. 5. Diverticulosis without diverticulitis.
[2023-01-05 00:02] VITALS: BP 122/70; PULSE 90
== END 2023-01-05 00:11 | disposition home or self-care (01) ==
LOC: EC 19:59
DX: S39.012A Strain of muscle, fascia and tendon of lower back, initial encounter (principal); N23 Unspecified renal colic; K80.20 Calculus of gallbladder without cholecystitis without obstruction; I88.0 Nonspecific mesenteric lymphadenitis; E78.5 Hyperlipidemia, unspecified; E11.9 Type 2 diabetes mellitus without complications; Z87.891 Personal history of nicotine dependence; Z79.84 Long term (current) use of oral hypoglycemic drugs; Z79.899 Other long term (current) drug therapy; Z88.8 Allergy status to other drugs, medicaments and biological substances; X58.XXXA Exposure to other specified factors, initial encounter
CPT/HCPCS: 36415; 80053; 82150; 83690; 85025; 74176; 99284; 96374; 96361; J1885

== ENCOUNTER → 2023-02-06 | Outpatient (CLI) | payer MEDICARE, BC | END | disposition home or self-care (01) | LOC: LABWHC1 08:52 | PROVIDERS: ATTEND Family Medicine | DX: E11.9 Type 2 diabetes mellitus without complications (principal); E55.9 Vitamin D deficiency, unspecified | CPT/HCPCS: 36415; 82306; 83036 ==

== ENCOUNTER → 2023-05-19 | Outpatient (CLI) | payer MEDICARE, BC | END | disposition home or self-care (01) | LOC: LABWHC1 13:25 | PROVIDERS: ATTEND Family Medicine | DX: E55.9 Vitamin D deficiency, unspecified (principal); R53.81 Other malaise | CPT/HCPCS: 36415; 82306; 84443 ==

== ENCOUNTER → 2023-08-15 | Outpatient (CLI) | payer MEDICARE, BC | END | disposition home or self-care (01) | LOC: LABWHC1 10:42 | PROVIDERS: ATTEND Family Medicine | DX: E11.65 Type 2 diabetes mellitus with hyperglycemia (principal) | CPT/HCPCS: 36415; 83036 ==

== ENCOUNTER → 2023-11-11 | Outpatient (CLI) | payer MEDICARE, BC ==
[2023-11-11 15:42] LABS: Basophils # (A) 0.03 X 10*3/uL (0.00-0.10); Basophils % (A) 0.4 %; Eosinophils # (A) 0.23 X 10*3/uL (0.04-0.35); Eosinophils % (A) 3.2 %; HCT 41.7 % (39.6-50.0); HGB 13.5 g/dL (13.0-17.0); Lymphocytes # (A) 2.73 X 10*3/uL (0.90-5.00); Lymphocytes % (A) 38.2 %; MCH 31.4 pg (27.0-32.0); MCHC 32.4 g/dL (32.0-37.0); Mean Platelet Volume 9.1 FL (9.5-12.2); Monocytes # (A) 0.55 X 10*3/uL (0.20-1.00); Monocytes % (A) 7.7 %; NRBC Per 100 WBC 0 X 10*3/uL (0.00-0.01); Neutrophils # (A) 3.59 X 10*3/uL (1.80-7.70); Neutrophils % (A) 50.4 %; Platelet Count 157 X 10*3/uL (140-440); RDW 12.9 % (11.5-14.5); WBC 7.14 X 10*3/uL (4.50-10.00)
[2023-11-11 16:25] LABS: ALT 31 U/L (10-49); AST 24 U/L (14-35); Albumin 4.4 g/dL (3.8-4.9); Albumin/Globulin Ratio 1.83 Ratio (1.60-3.17); Alkaline Phosphatase 98 U/L (41-126); BUN/Creat Ratio 16.75 Ratio (12.00-20.00); Bilirubin, Conjugated <0.20 mg/dL (0.20-0.40); Bilirubin,Unconjugated >0.40 mg/dL (0.20-1.00); Blood Urea Nitrogen 20.1 mg/dL (9.0-27.0); Calcium 9.2 mg/dL (8.7-10.3); Carbon Dioxide 25.1 mmol/L (21.6-31.8); Chloride 103 mmol/L (96-109); Globulin 2.4 g/dL (1.6-3.3); Glucose 93 mg/dL (70-110); Potassium 4.8 mmol/L (3.5-5.5); Sodium 140 mmol/L (135-145); Total Bilirubin 0.6 mg/dL (0.3-1.2); Total Protein 6.8 g/dL (6.2-8.2)
== END | disposition home or self-care (01) ==
LOC: LABWHC1 09:49
PROVIDERS: ATTEND Nurse Practitioner
DX: Z00.00 Encounter for general adult medical examination without abnormal findings (principal); E11.65 Type 2 diabetes mellitus with hyperglycemia; E78.00 Pure hypercholesterolemia, unspecified; N28.9 Disorder of kidney and ureter, unspecified; E55.9 Vitamin D deficiency, unspecified; Z68.31 Body mass index [BMI] 31.0-31.9, adult
CPT/HCPCS: 80053; 82248; 84443; 85025; 82306; 83036; 36415; G0103

== ENCOUNTER → 2024-02-20 | Outpatient (CLI) | payer MEDICARE, BC | END | disposition home or self-care (01) | LOC: LABWHC1 10:55 | PROVIDERS: ATTEND Nurse Practitioner Family | DX: E11.9 Type 2 diabetes mellitus without complications (principal) | CPT/HCPCS: 36415; 83036 ==

== ENCOUNTER → 2024-05-21 | Outpatient (CLI) | payer MEDICARE, BC ==
[2024-05-21 15:37] LABS: Basophils # (A) 0.02 X 10*3/uL (0.00-0.10); Basophils % (A) 0.4 %; Eosinophils # (A) 0.17 X 10*3/uL (0.04-0.35); HCT 38.3 % (39.6-50.0); HGB 12.5 g/dL (13.0-17.0); Lymphocytes # (A) 2.29 X 10*3/uL (0.90-5.00); Lymphocytes % (A) 40.6 %; MCHC 32.6 g/dL (32.0-37.0); Mean Platelet Volume 9.8 FL (9.5-12.2); Monocytes # (A) 0.44 X 10*3/uL (0.20-1.00); Monocytes % (A) 7.8 %; NRBC Per 100 WBC 0 X 10*3/uL (0.00-0.01); Neutrophils # (A) 2.71 X 10*3/uL (1.80-7.70); Platelet Count 152 X 10*3/uL (140-440); RBC 3.91 X 10*6/uL (4.40-5.60); RDW 12.8 % (11.5-14.5); WBC 5.64 X 10*3/uL (4.50-10.00)
[2024-05-21 15:42] LABS: ALT 18 U/L (10-49); AST 19 U/L (14-35); Albumin/Globulin Ratio 1.67 Ratio (1.60-3.17); Alkaline Phosphatase 84 U/L (41-126); BUN/Creat Ratio 15.08 Ratio (12.00-20.00); Blood Urea Nitrogen 18.1 mg/dL (9.0-27.0); Calcium 9.3 mg/dL (8.7-10.3); Carbon Dioxide 24.5 mmol/L (21.6-31.8); Chloride 105 mmol/L (96-109); Chol/HDL Ratio 5.39 Ratio; Globulin 2.4 g/dL (1.6-3.3); Glucose 107 mg/dL (70-110); LDL Cholesterol,Calculated 114.9 mg/dL (0.0-131.0); Sodium 141 mmol/L (135-145); Total Bilirubin 0.6 mg/dL (0.3-1.2); Total Protein 6.4 g/dL (6.2-8.2)
== END | disposition home or self-care (01) ==
LOC: LABWHC1 10:06
PROVIDERS: ATTEND Family Medicine
DX: E11.69 Type 2 diabetes mellitus with other specified complication (principal); E78.00 Pure hypercholesterolemia, unspecified
CPT/HCPCS: 36415; 80053; 80061; 83036; 85025

== ENCOUNTER → 2024-08-25 | Outpatient (CLI) | payer MEDICARE, BC ==
[2024-08-25 16:13] LABS: ALT 25 U/L (10-49); AST 22 U/L (14-35); Albumin 4.3 g/dL (3.8-4.9); Albumin/Globulin Ratio 1.79 Ratio (1.60-3.17); Alkaline Phosphatase 98 U/L (41-126); BUN/Creat Ratio 16.67 Ratio (12.00-20.00); Calcium 9.5 mg/dL (8.7-10.3); Carbon Dioxide 24.4 mmol/L (21.6-31.8); Chloride 107 mmol/L (96-109); Chol/HDL Ratio 5.79 Ratio; Globulin 2.4 g/dL (1.6-3.3); Glucose 181 mg/dL (70-110); LDL Cholesterol,Calculated 124.6 mg/dL (0.0-131.0); Potassium 5.3 mmol/L (3.5-5.5); Sodium 143 mmol/L (135-145); Total Bilirubin 0.6 mg/dL (0.3-1.2); Total Protein 6.7 g/dL (6.2-8.2)
== END | disposition home or self-care (01) ==
LOC: LABWHC1 11:25
PROVIDERS: ATTEND Family Medicine
DX: I10 Essential (primary) hypertension (principal); E11.9 Type 2 diabetes mellitus without complications; E78.2 Mixed hyperlipidemia
CPT/HCPCS: 36415; 80053; 80061; 83036

== ENCOUNTER → 2024-11-25 | Outpatient (CLI) | payer MEDICARE, BC ==
[2024-11-25 15:15] LABS: Basophils # (A) 0.02 X 10*3/uL (0.00-0.10); Basophils % (A) 0.3 %; Eosinophils # (A) 0.16 X 10*3/uL (0.04-0.35); Eosinophils % (A) 2.3 %; HCT 39.5 % (39.6-50.0); HGB 12.7 g/dL (13.0-17.0); Lymphocytes # (A) 2.58 X 10*3/uL (0.90-5.00); Lymphocytes % (A) 37.7 %; MCH 31.1 pg (27.0-32.0); MCHC 32.2 g/dL (32.0-37.0); MCV 96.8 FL (80.0-97.0); Mean Platelet Volume 8.7 FL (9.5-12.2); Monocytes # (A) 0.49 X 10*3/uL (0.20-1.00); Monocytes % (A) 7.2 %; NRBC Per 100 WBC 0 X 10*3/uL (0.00-0.01); Neutrophils # (A) 3.57 X 10*3/uL (1.80-7.70); Neutrophils % (A) 52.2 %; Platelet Count 174 X 10*3/uL (140-440); RBC 4.08 X 10*6/uL (4.40-5.60); RDW 12.8 % (11.5-14.5); WBC 6.84 X 10*3/uL (4.50-10.00)
[2024-11-25 15:35] LABS: ALT 22 U/L (10-49); AST 25 U/L (14-35); Albumin 4.3 g/dL (3.8-4.9); Albumin/Globulin Ratio 1.87 Ratio (1.60-3.17); Alkaline Phosphatase 90 U/L (41-126); BUN/Creat Ratio 16.75 Ratio (12.00-20.00); Blood Urea Nitrogen 20.1 mg/dL (9.0-27.0); Calcium 9.5 mg/dL (8.7-10.3); Chloride 106 mmol/L (96-109); Chol/HDL Ratio 5.26 Ratio; Globulin 2.3 g/dL (1.6-3.3); Glucose 156 mg/dL (70-110); LDL Cholesterol,Calculated 118.9 mg/dL (0.0-131.0); Potassium 4.8 mmol/L (3.5-5.5); Sodium 143 mmol/L (135-145); Total Bilirubin 0.6 mg/dL (0.3-1.2); Total Protein 6.6 g/dL (6.2-8.2); VLDL Calculation 19.64 mg/dL (5.00-40.00)
== END | disposition home or self-care (01) ==
LOC: LABWHC1 11:22
PROVIDERS: ATTEND Nurse Practitioner Family
DX: E78.00 Pure hypercholesterolemia, unspecified (principal); E11.22 Type 2 diabetes mellitus with diabetic chronic kidney disease; N18.2 Chronic kidney disease, stage 2 (mild); Z79.4 Long term (current) use of insulin
CPT/HCPCS: 36415; 80053; 80061; 83036; 85025

== ENCOUNTER → 2024-12-14 | Outpatient (CLI) | payer MEDICARE, BC ==
--- NOTE | 2024-12-14 10:56 | US ---
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 FINDINGS: GLAND SIZE: Right Lobe: 5.9x2.0x2.0 cm Overall Parenchyma: homogeneous Left Lobe: 4.0x1.0x1.3 cm Overall Parenchyma: homogeneous Isthmus Thickness: 0.4 cm NODULES RIGHT: # of nodules measured on right: 1 1. 0.7 X 0.4 x 0.5 cm, upper medial, solid or almost completely solid, hypoechoic TR4 nodule, which is wider than tall, with ill-defined margins, without echogenic foci. LEFT: # of nodules measured on left: 1 1. 0.7 X 0.3 x 0.4 cm, mid mid, solid or almost completely solid, hypoechoic TR4 nodule, which is w ider than tall, with ill-defined margins, without echogenic foci. ISTHMUS: # of nodules measured in the isthmus: 0 Bilateral neck scanned, no evidence of lymphadenopathy. IMPRESSION: A single solid, TR4 nodule on either side. Each of these nodules measure up to 7 mm. TR4: If nodule size is ? 1.5 cm, FNA is recommended. If nodule size is ? 1.0 cm, follow-up imaging at 1, 2, 3, and 5 years is recommended. [facility], , 12/14/2024 10:53 AM
[2024-12-14 16:06] LABS: % Iron Saturation 23.27 (15.00-50.00); Ferritin 61.8 ng/mL (22.0-322.0)
== END | disposition home or self-care (01) ==
LOC: RADUSWWP 10:16
PROVIDERS: ATTEND Family Medicine
DX: E01.0 Iodine-deficiency related diffuse (endemic) goiter (principal); R53.83 Other fatigue; R26.89 Other abnormalities of gait and mobility; Z86.39 Personal history of other endocrine, nutritional and metabolic disease
CPT/HCPCS: 76536; 82607; 82728; 83540; 83550

== ENCOUNTER 2025-03-16 18:20 | Emergency (ER) | payer MEDICARE, BC ==
[2025-03-16] MEDS: SODIUM CHLORIDE 0.9% 1,000 ML IV ONE (19:38)
[2025-03-16 19:48] LABS: Basophils # (A) 0.02 10*3/uL (0.00-0.10); Basophils % (A) 0.2 %; Eosinophils # (A) 0.18 10*3/uL (0.04-0.35); Eosinophils % (A) 2.0 %; HCT 41.4 % (39.6-50.0); HGB 14.0 g/dL (13.0-17.0); Lymphocytes # (A) 2.56 10*3/uL (0.90-5.00); Lymphocytes % (A) 28.7 %; MCH 32.0 pg (27.0-32.0); MCHC 33.8 g/dL (32.0-37.0); MCV 94.5 fL (80.0-97.0); Monocytes # (A) 0.76 10*3/uL (0.20-1.00); Monocytes % (A) 8.5 %; Neutrophils # (A) 5.37 10*3/uL (1.80-7.70); Neutrophils % (A) 60.4 %; Platelet Count 136 10*3/uL (140-440); RBC 4.38 10*6/uL (4.40-5.60); RDW 12.1 % (11.5-14.5); WBC 8.91 10*3/uL (4.50-10.00)
[2025-03-16 20:05] LABS: ALT 20 U/L (4-49); AST 22 U/L (17-59); African American GFR (CKD) 59 (>60 ml/min/1.73 sqM); Albumin 4.2 g/dL (3.5-5.0); Alkaline Phosphatase 94 U/L (38-126); Anion Gap 11 mmol/L; Blood Urea Nitrogen 25 mg/dL (9-20); Calcium 8.9 mg/dL (8.4-10.2); Carbon Dioxide 20 mmol/L (22-30); Chloride 108 mmol/L (98-107); Glucose 143 mg/dL (74-99); Non-African American GFR(CKD) 51 (>60 ml/min/1.73 sqM); Potassium 4.2 mmol/L (3.5-5.1); Sodium 139 mmol/L (137-145); Total Protein 6.9 g/dL (6.3-8.2)
--- NOTE | 2025-03-16 20:19 | ED ---
General Adult HPI - General Chief complaint: Nausea/Vomiting/Diarrhea Stated complaint: diarrhea Time Seen by Provider: 03/16/25 18:42 Source: patient Mode of arrival: ambulatory Limitations: no limitations - History of Present Illness Initial comments: 69-year-old male present with chief complaint of diarrhea. Patient states has been ongoing for the last 4 to 5 days. He is also having some lower abdominal cramping, worse on the left side. No hematochezia or melena. No nausea or vomiting. No fever or chills. He took [id number] antidiarrheals which did not help. No history of diverticulitis. - Related Data Home Medications Medication Instructions Recorded Confirmed Atorvastatin Calcium [Lipitor] 40 mg PO HS 02/28/16 03/09/21 Colesevelam [Welchol] 1,875 mg PO AC-BID 02/28/16 03/09/21 Ezetimibe [Zetia] 10 mg PO HS 02/28/16 03/09/21 metFORMIN HCL [Glucophage] 1,000 mg PO BID 02/28/16 03/09/21 Pioglitazone HCl [Actos] 15 mg PO DAILY 01/16/18 03/09/21 lisinopriL [Prinivil] 2.5 mg PO HS 01/16/18 03/09/21 Cyanocobalamin (Vitamin B-12) 2,000 mcg PO HS 02/16/19 03/09/21 [Vitamin B-12] Dulaglutide [Trulicity] 0.75 mg SQ LEUNG 02/16/19 03/09/21 Ascorbic Acid [Vitamin C] 500 mg PO HS 03/07/21 03/09/21 Ferrous Sulfate [Iron] 325 mg PO HS 03/07/21 03/07/21 Ibuprofen [Motrin Ib] 200 - 800 mg PO Q8H PRN 03/07/21 03/09/21 Allergies Allergy/AdvReac Type Severity Reaction Status Date / Time dapagliflozin [From Farxiga] AdvReac yeast Verified 03/16/25 18:30 infection Review of Systems ROS Statement: Those systems with pertinent positive or pertinent negative responses have been documented in the HPI. ROS Other: All systems not noted in ROS Statement are negative. 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 History of Any Multi-Drug Resistant Organisms: None Reported Past Surgical History: Hernia Repair, Tonsillectomy Past Anesthesia/Blood Transfusion Reactions: No Reported Reaction Past Psychological History: No Psychological Hx Reported Smoking Status: Former smoker Past Alcohol Use History: None Reported Past Drug Use History: None Reported - Past Family History Mother Family Medical History: No Reported History Sister(s) Family Medical History: Cancer General Exam Limitations: no limitations General appearance: alert, in no apparent distress Head exam: Present: atraumatic, normocephalic, normal inspection Eye exam: Present: normal appearance, EOMI Neck exam: Present: normal inspection. Absent: meningismus Respiratory exam: Present: normal lung sounds bilaterally. Absent: respiratory distress, wheezes, rales, rhonchi, stridor Cardiovascular Exam: Present: regular rate, normal rhythm, normal heart sounds. Absent: systolic murmur, diastolic murmur, rubs, gallop, clicks GI/Abdominal exam: Present: soft, tenderness. Absent: distended, guarding, rebound, rigid Neurological exam: Present: alert, oriented X3 Psychiatric exam: Present: normal affect, normal mood Skin exam: Present: warm, dry, normal color Course Vital Signs 03/16/25 03/16/25 18:28 22:36 Temperature 97.9 F 98.0 F Pulse Rate 81 76 Respiratory 18 16 Rate Blood Pressure 99/61 106/70 O2 Sat by Pulse 96 98 Oximetry Medical Decision Making - Medical Decision Making Was pt. sent in by a medical professional or institution (Dr. PA, GLAZE SPRAYER, urgent care, hospital, or [facility]...) When possible be specific @ -No Did you speak to anyone other than the patient for history (EMS, parent, family, police, friend...)? What history was obtained from this source @ -No Did you review nursing and triage notes (agree or disagree)? Why? @ -I reviewed and agree with nursing and triage notes Were old charts reviewed (outside hosp., previous admission, EMS record, old EKG, old radiological studies, urgent care reports/EKG's, [facility] records)? Report findings @ -No old charts were reviewed Differential Diagnosis (chest pain, altered mental status, abdominal pain women, abdominal pain men, vaginal bleeding, weakness, fever, dyspnea, syncope, head ache, dizziness, GI bleed, back pain, seizure, CVA, palpatations, mental health, musculoskeletal)? @ -[facility] Differential Abdominal Pain Men: Appendicitis, cholecystitis, diverticulosis, ischemic bowel, pancreatitis, hepatitis, UTI, gastroenteritis, AAA, incarcerated hernia, bowel obstruction, constipation, inflammatory bowel, hepatitis, peptic ulcer disease, splenic infarction, perforated viscus, testicular torsion... This is not meant to be an all-inclusive list EKG interpreted by me (3pts min.). @ -As above X-rays interpreted by me (1pt min.). @ -None done CT interpreted by me (1pt min.). @ -CT shows hazy appearance at the mid abdominal mesentery with scattered mildly enlarged lymph nodes can be seen in mesenteric adenitis. Correlate with clinical evaluation. Findings may relate to early pancreatitis. Correlate with lipase values. Enlarged prostate correlate with PSA values. Cholelithiasis U/S interpreted by me (1pt. min.). @ -None done What testing was considered but not performed or refused? (CT, X-rays, U/S, labs)? Why? @ -None What meds were considered but not given or refused? Why? @ -None Did you discuss the management of the patient with other professionals (pr ofessionals i.e. , PA, G[employer]ZE [employer]ER, lab, RT, psych nurse, social science research assistant, presetter operator, teacher, deck officer, caser shoe parts)? Give summary @ -No Was smoking cessation discussed for >3mins.? @ -No Was critical care preformed (if so, how long)? @ -No Were there social determinants of health that impacted care today? How? (Homelessness, low income, unemployed, alcoholism, drug addiction, transportation, low edu. Level, literacy, decrease access to med. care, detention, rehab)? @ -No Was there de-escalation of care discussed even if they declined (Discuss DNR or withdrawal of care, Hospice)? DNR status @ -No What co-morbidities impacted this encounter? (DM, HTN, Smoking, COPD, CAD, Cancer, CVA, ARF, Chemo, Hep., AIDS, mental health diagnosis, sleep apnea, morbid obesity)? @ -None Was patient admitted / discharged? Hospital course, mention meds given and route, prescriptions, significant lab abnormalities, going to OR and other pertinent info. @ -69-year-old male presenting with chief complaint of diarrhea ongoing for 4 days. History and physical examination are conducted. No leukocytosis or ane nikolas. Mildly elevated BUN and creatinine of 25 and 1.39, patient is receiving IV fluids. CT shows scattered mildly enlarged lymph nodes which may be due to mesenteric adenitis. Amylase and lipase are WNL, does not correlate with pancreatitis. Patient reports that earlier during his visit he had a large bout of diarrhea but since then has felt significantly better and has not had any further episodes. He is educated on today's findings. He is provided with Lomotil. Follow-up with PCP. Report back to ER with any new or worsening symptoms. Discussed return parameters and answered all questions. Patient conveyed verbal understanding and agreed to the plan. I discussed this case in detail with my attending Dr. Barcenas Undiagnosed new problem with uncertain prognosis? @ -No Drug Therapy requiring intensive monitoring for toxicity (Heparin, Nitro, Insulin, Cardizem)? @ -No Were any procedures done? @ -No Diagnosis/symptom? @ -diarrhea Acute, or Chronic, or Acute on Chronic? @ -acute Uncomplicated (without systemic symptoms) or Complicated (systemic symptoms)? @ -Uncomplicated Side effects of treatment? @ -No Exacerbation, Progression, or Severe Exacerbation? @ -No Poses a threat to life or bodily function? How? (Chest pain, [place], [place], pneumonia, PE, COPD, DKA, ARF, appy, cholecystitis, CVA, Diverticulitis, Homicidal, Suicidal, threat to staff... and all critical care pts) @ -unlikely - Lab Data Result diagrams: 03/16/25 19:42 03/16/25 19:42 Lab Results 03/16/25 03/16/25 03/16/25 Range/Units 19:42 19:42 19:42 WBC 8.91 (4.50-10.00) 10*3/uL RBC 4.38 L (4.40-5.60) 10*6/uL Hgb 14.0 (13.0-17.0) g/dL Hct 41.4 (39.6-50.0) % MCV 94.5 (80.0-97.0) fL MCH 32.0 (27.0-32.0) pg MCHC 33.8 (32.0-37.0) g/dL Plt Count 136 L (140-440) 10*3/uL MPV 8.9 L (9.5-12.2) fL Immature Gran % (Auto) 0.2 % Neutrophils % 60.4 % Lymphocytes % 28.7 % Monocytes % 8.5 % Eosinophils % 2.0 % Basophils % 0.2 % Immature Gran # 0.02 (0.00-0.04) 10*3/uL Neutrophils # 5.37 (1.80-7.70) 10*3/uL Lymphocytes # 2.56 (0.90-5.00) 10*3/uL Monocytes # 0.76 (0.20-1.00) 10*3/uL Eosinophils # 0.18 (0.04-0.35) 10*3/uL Basophils # 0.02 (0.00-0.10) 10*3/uL Sodium 139 (137-145) mmol/L Potassium 4.2 (3.5-5.1) mmol/L Chloride 108 H (98-107) mmol/L Carbon Dioxide 20 L (22-30) mmol/L Anion Gap 11 mmol/L BUN 25 H (9-20) mg/dL Creatinine 1.39 H (0.66-1.25) mg/dL Est GFR (CKD-EPI)AfAm 59 (>60 ml/min/1.73 sqM) Est GFR (CKD-EPI)NonAf 51 (>60 ml/min/1.73 sqM) Glucose 143 H (74-99) mg/dL Plasma Lactic Acid Parth 0.9 (0.7-2.0) mmol/L Calcium 8.9 (8.4-10.2) mg/dL Total Bilirubin 0.8 (0.2-1.3) mg/dL AST 22 (17-59) U/L ALT 20 (4-49) U/L Alkaline Phosphatase 94 (38-126) U/L Total Protein 6.9 (6.3-8.2) g/dL Albumin 4.2 (3.5-5.0) g/dL Amylase (30-110) U/L Lipase (23-300) U/L 03/16/25 Range/Units 19:42 WBC (4.50-10.00) 10*3/uL RBC (4.40-5.60) 10*6/uL Hgb (13.0-17.0) g/dL Hct (39.6-50.0) % MCV (80.0-97.0) fL MCH (27.0-32.0) pg MCHC (32.0-37.0) g/dL Plt Count (140-440) 10*3/uL MPV (9.5-12.2) fL Immature Gran % (Auto) % Neutrophils % % Lymphocytes % % Monocytes % % Eosinophils % % Basophils % % Immature Gran # (0.00-0.04) 10*3/uL Neutrophils # (1.80-7.70) 10*3/uL Lymphocytes # (0.90-5.00) 10*3/uL Monocytes # (0.20-1.00) 10*3/uL Eosinophils # (0.04-0.35) 10*3/uL Basophils # (0.00-0.10) 10*3/uL Sodium (137-145) mmol/L Potassium (3.5-5.1) mmol/L Chloride (98-107) mmol/L Carbon Dioxide (22-30) mmol/L Anion Gap mmol/L BUN (9-20) mg/dL Creatinine (0.66-1.25) mg/dL Est GFR (CKD-EPI)AfAm (>60 ml/min/1.73 sqM) Est GFR (CKD-EPI)NonAf (>60 ml/min/1.73 sqM) Glucose (74-99) mg/dL Plasma Lactic Acid Parth (0.7-2.0) mmol/L Calcium (8.4-10.2) mg/dL Total Bilirubin (0.2-1.3) mg/dL AST (17-59) U/L ALT (4-49) U/L Alkaline Phosphatase (38-126) U/L Total Protein (6.3-8.2) g/dL Albumin (3.5-5.0) g/dL Amylase 64 (30-110) U/L Lipase 82 (23-300) U/L Disposition Clinical Impression: Diarrhea Disposition: HOME SELF-CARE Condition: Good Instructions (If sedation given, give patient instructions): Acute Diarrhea (ED) Additional Instructions: Follow-up with your PCP. Report back to ER with any new or worsening symptoms. Is patient prescribed a controlled substance at d/c from ED?: No Referrals: Harrison Ordaz, [Primary Care Provider] - 1-2 days Time of Disposition: 22:30
--- NOTE | 2025-03-16 21:38 | CT ---
EXAMINATION TYPE: CT abdomen pelvis w con DATE OF EXAM: 03/16/2025 8:30 PM COMPARISON: CT abdomen/pelvis 01/04/2023 CLINICAL INDICATION: Male, 69 years old with history of Diarrhea left lower quadrant pain; LLQ PAIN, DIARRHEA TECHNIQUE: Axial CT abdomen pelvis w con;Sagittal and coronal reformats were created on a separate w orkstation. Contrast used:80 ml mL of Isovue 300 with IV Contrast, (none if empty) Oral contrast used: without Oral Contrast (none if empty) CT DLP: 1440.3 mGycm, Automated exposure control for dose reduction was used. FINDINGS: LOWER CHEST: Unremarkable ABDOMEN LIVER: Unremarkable GALLBLADDER AND BILE DUCTS: Layering increased densities within the lumen consistent with gallstones are present. PANCREAS: Atrophic. SPLEEN: Small splenule is present. ADRENAL GLANDS: Unremarkable. KIDNEYS AND URETERS: No evidence of hydronephrosis or obstructing renal calculus. Bilateral renal cys ts with subcentimeter hypoattenuated foci noted in the left kidney too small to characterize. The ure ters are unremarkable. PELVIS BLADDER: No evidence for wall thickening or mass given limitations of exam. REPRODUCTIVE: Enlarged prostate gland measuring up to at least 5.2 cm in transverse distention. ABDOMEN & PELVIS STOMACH AND BOWEL: Stomach is grossly unremarkable. Small bowel is of normal caliber. No evidence of bowel obstruction. PERITONEUM/RETROPERITONEUM: No evidence of pneumoperitoneum or free fluid. There is haziness of the m id abdominal mesentery with a few scattered lymph nodes seen measuring up to 7 mm. VASCULATURE: No evidence of aortic aneurysm. MUSCULOSKELETAL: No acute osseous abnormalities LYMPH NODES: Scattered mildly enlarged lymph nodes throughout the mid abdomen are seen measuring up t o at least 7 mm in short axis.. SOFT TISSUE/ABDOMINAL WALL: Bilateral fat filled inguinal hernias left greater than right. IMPRESSION: 1. Hazy appearance of the mid abdominal mesentery with scattered mildly enlarged lymph nodes can be seen in mesenteric adenitis. Correlate with clinical evaluation. Findings may relate to early pancrea titis. Correlate with lipase values. 2. Enlarged prostate. Correlate with PSA values. 3. Cholelithiasis. [facility], , 03/16/2025 9:36 PM
[2025-03-16 22:09] LABS: Amylase 64 U/L (30-110); Lipase 82 U/L (23-300)
[2025-03-16] MEDS: DIPHENOX-ATROP STARTER PACK 8 TAB BTL PO STA (22:33)
[2025-03-16 22:37] VITALS: BP 106/70; PULSE 76; RESP 16; TEMP 98
== END 2025-03-16 22:37 | disposition home or self-care (01) ==
LOC: EC 18:20
CPT/HCPCS: 36415; 74177; 80053; 82150; 83605; 83690; 85025; 96360; 99284